=== PATIENT | male | born 1955 | race Caucasian/White ===

== ENCOUNTER → 2017-06-04 11:30 | Outpatient (CLI) | payer OTHER ==
[~2017-06-04] VITALS: Ht 182.9 cm; Wt 85.5 kg
--- NOTE | ~2017-06-04 | HEMODYNAMI ---
PATIENT:SANDY CHUN MEDICAL RECORD: [id number] : 55 LOCATION:[facility] ADMISSION DATE: 06/04/17 Generatedon:06/04/201715:03 Patient name: SANDY CHUN Patient #: [id number] SSN: D OB: 1955 Date of study: 06/04/2017 Page: Of Hemodynamic Procedure Report Patient Data Patient Demographics Procedure consent was obtained First Name: SANDY Gender: Male Last Name: ADIEL : 1955 Patient #: [id number] Age: 61 year(s) Race: Unknown Additional ID: [id number] Contact details [address]: [address] [place] [address] [place] State: [place] City: [place] Zip code: [address] Past Medical History Allergies: No known allergies Admission Admission Data Admission Date: 06/04/2017 Admission Time: 11:30 Lab Results Lab Result Date: 06/04/2017 Lab Result Time: 0:00 Biochemistry Name Units Result Min Max Creatinine mg/dl 1.1 --(--*-)-- 0.6 1.3 CBC Name Units Result Min Max Hemoglobin g/dl 14.2 --(*---)-- 13.5 17.5 Procedure Procedure Types Cath Procedure Diagnostic Procedure [facility] w/Coronaries PCI Procedure Coronary Stent Initial Coronary Stent Additional Miscellaneous Procedures Moderate Sedation up to 45 minutes Procedure Description Procedure Date Procedure Date: 06/04/2017 Procedure Start Time: 14:09 Procedure End Time: 15:03 Procedure Staff Name Function Sabas Lee MD Performing Physician Renate Basurto RT Scrub Rahel Dong RN Nurse Ish Bailey RN Mechanical Design Engineer Products Yifan Moreno RT Monitor Procedure Data Cath Procedure Fluoroscopy Diagnostic fluoroscopy Total fluoroscopy Time: time: 16.7 min 16.7 min Diagnostic fluoroscopy Total fluoroscopy dose: dose: 1545 mGy 1545 mGy Contrast Material Contrast Material Type Amount (ml) Isovue 300 211 Entry Location Entry Primary Successful Side Size Upsize Upsize Entry Closure Hung ccessful Closure Location (Fr) 1 (Fr) 2 (Fr) Remarks Device Remarks Radial Right 6 Fr Mechanical artery Short Compression Femoral Right 6 Fr Exoseal artery Short Estimated blood loss: 10 ml Diagnostic catheters Device Type Used For End Catheter Placement Diagnostic Terumo 5Fr LV Angiography Bone Gap 110cm catheter Diagnostic Terumo 5Fr Left Coronary Bone Gap 110cm catheter Angiography Procedure Complications No complications Procedure Medications Medication Administration Route Dosage Oxygen NC 2 l/min Lidocaine 2% added to field 20 Heparin Flush Bag added to field 2 bags (1000units/500ml NS) 0.9% NaCl I.V. 100 ml/hr Versed I.V. 1 mg Fentanyl I.V. 50 mcg Versed I.V. 1 mg Fentanyl I.V. 50 mcg Radial Cocktail I.A. 1 syringe (Verapomil 2mg/Nitro 400mcg/Heparin 1500units) Fentanyl I.V. 50 mcg Heparin Bolus I.V. 4000 units Integrilin (Bolus I.V. 7.9 ml 2mg/ml) Fentanyl I.V. 50 mcg Heparin Bolus I.V. 2000 units Plavix P.O. 600 mg Hemodynamics Rest HGB: 14.2 (g/dl) Heart Rate: 98 (bpm) Pressure Samples Time Site Value (mmHg) Purpose Heart Use Rate(bpm) 14:12 LV 136/3,9 EDP 89 Gradients Valve Time Site Site Mean SEP/DFP Peak To Heart Use 1 2 (mmHg) (sec/min) Peak Rate (mmHg) (bpm) Aortic 14:13 LV AO 94 Snapshots Pre Cath Intra NCS Post Cath Vital Signs Time Heart Resp SPO2 etCO2 [id number] NIBP (mmHg) Rhythm Pain Sedation Rate (ipm) (%) (mmHg) (mmHg) Status Level (bpm) 13:58:05 93 15 100 0 0 169/85(133) NSR 0 (11) 10(A) , No pain 14:02:17 87 16 96 0 0 138/92(105) NSR 0 (11) 10(A) , No pain 14:06:33 86 14 98 0 0 144/77(128) NSR 0 (11) 10(A) , No pain 14:10:49 95 16 98 0 0 131/74(103) NSR 0 (11) 9(A) , No pain 14:15:03 86 16 96 0 0 143/76(117) NSR 0 (11) 9(A) , No pain 14:19:21 85 21 94 0 0 159/75(103) NSR 0 (11) 9(A) , No pain 14:23:37 86 16 96 0 0 131/75(111) NSR 0 (11) 9(A) , No pain 14:27:49 95 19 98 0 0 137/82(116) NSR 0 (11) 9(A) , No pain 14:32:03 94 24 97 0 0 143/80(108) NSR 0 (11) 9(A) , No pain 14:36:19 92 19 97 0 0 137/78(115) NSR 0 (11) 9(A) , No pain 14:40:33 103 21 99 0 0 160/79(110) NSR 0 (11) 9(A) , No pain 14:44:49 101 19 96 0 0 149/87(108) NSR 0 (11) 9(A) , No pain 14:49:09 96 22 97 0 0 146/79(109) NSR 0 (11) 9(A) , No pain 14:53:25 97 17 97 0 0 153/85(111) NSR 0 (11) 9(A) , No pain 14:57:39 96 20 97 0 0 164/95(114) NSR 0 (11) 10(A) , No pain 15:01:55 92 21 96 0 0 158/92(123) NSR 0 (11) 10(A) , No pain Medications Time Medication Route Dose Verified Delivered Reason Note s Effectiveness by by 13:57:33 Oxygen NC 2 l/min Sabas Mcginnis used for [facility] Angel Dong RN procedure 13:57:41 Lidocaine 2% added 20ml Sabas Obregon for local to vial [facility] anesthetic field MD PERAZA 13:57:47 Heparin Flush added 2 bags Sabas Obregon used for Bag to [facility] procedure (1000units/500ml field MD PERAZA NS) 13:57:57 0.9% NaCl I.V. 100 Sabas Mcginnis Per physician ml/hr [facility] Angel Dong RN, MD 14:07:40 Versed I.V. 1 mg Sabas Mcginnis for sedation [facility]. Angel Dong RN, MD 14:07:46 Fentanyl I.V. 50 mcg Sabas Mcginnis for sedation [facility]. Angel Dong RN, MD 14:10:07 Radial Cocktail I.A. 1 Sabas Obregon for (Verapomil syringe [facility] Angel Lee vasodilation 2mg/Nitro MD PERAZA 400mcg/Heparin 1500units) 14:10:14 Versed I.V. 1 mg Sabas Mcginnis for sedation [facility]. Angel Dong RN, MD 14:10:19 Fentanyl I.V. 50 mcg Sabas Mcginnis for sedation [facility]. Angel Dong RN, MD 14:15:50 Fentanyl I.V. 50 mcg Sabas Mcginnis for sedation St. Angel Dong RN, MD 14:19:30 Heparin Bolus I.V. 4000 Sabas [place] for veri fied units St. Angel Dong RN anticoagulation with dr MD grijalva 14:21:18 Integrilin I.V. 7.9 ml Sabas Mcginnis for Wast ed (Bolus 2mg/ml) [facility]. Angel Dong RN antiplatelet 2.1 ml therapy of vial 14:39:32 Fentanyl I.V. 50 mcg Sabas Mcginnis for sedation St. Angel Dong RN, MD 14:42:23 Heparin Bolus I.V. 2000 Sabas Mcginnis for veri fied units St. Angel Dong RN anticoagulation with dr MD grijalva 15:01:03 Plavix P.O. 600 mg Sabas Mcginnis for St. Angel Dong RN antiplatelet therapy Procedure Log Time Note 13:37:27 Ish Bailey RN sent for patient. Start room use. 13:37:28 Time tracking: Regular hours 13:37:32 Plan of Care:Hemodynamics will remain stable., Cardiac rhythm will remain stable., Comfort level will be maintained., Respiratory function will remain adequate., Patient/ family verbilizes understanding of procedure., Procedure tolerated without complication., Recovers from procedure without complications.. 13:49:10 Patient received from Pre/Post Procedure Room to CCL 1 Alert and oriented. Tansferred to table in Supine position. 13:49:11 Warm blankets applied, and harvey hugger turned on for patient comfort. 13:49:12 Correct patient and procedure confirmed by team. 13:49:13 Signed procedure consent form obtained from patient. 13:49:14 ECG and BP/O2 sat monitors applied to patient. 13:49:16 Full Disclosure recording started 13:56:56 Vital chart was started 13:56:59 Rhythm: sinus rhythm 13:57:09 H&P Date Dictated: 05/30/2017 Within 30 days and on chart., H&P Addendum completed by physician on day of procedure. (MUST COMPLETE FOR ALL OUTPATIENTS). 13:57:10 Pre-procedure instructions explained to patient. 13:57:11 Pre-op teaching completed and patient verbalized understanding. 13:57:12 Family in waiting room. 13:57:19 Patient NPO since Midnight. 13:57:33 Oxygen 2 l/min NC was administered by Rahel Dong RN; used for procedure; 13:57:41 Lidocaine 2% 20ml vial added to field was administered by Sabas Lee MD; for local anesthetic; 13:57:47 Heparin Flush Bag (1000units/500ml NS) 2 bags added to field was administered by Sabas Lee MD; used for procedure; 13:57:57 0.9% NaCl 100 ml/hr I.V. was administered by Rahel Dong RN; Per physician; 13:57:59 Patient allergic to No known allergies 13:58:01 Is the patient allergic to Iodine/contrast media? No. 13:58:03 Is patient on blood thinner?No 13:58:08 ACC The patient was administered the following blood thiners within the last 24 hours: None 13:58:10 Patient diabetic? No. 13:58:13 Previous problem with sedation/anesthesia? No ? 13:58:14 Snore? Yes 13:58:15 Sleep apnea? No 13:58:16 Deviated septum? No 13:58:17 Opens mouth fully? Yes 13:58:18 Sticks out tongue? Yes 13:58:19 Airway obstruction? No ? 13:58:21 Dentures? No ? 13:58:27 Pre procedure: right dorsailis pedis pulse 2+ Normal; easily identifiable; not easily obliterated 13:58:30 Pre procedure: right radial pulse 2+ Normal; easily identifiable; not easily obliterated 13:58:32 Modified Jeffery's test Ulnar < 7 seconds 13:58:33 Patient pain scale 0/10 ?. 13:58:38 IV patent on arrival in left hand with 0.9% NaCl at [facility]. 13:59:37 Lab Result : Creatinine 1.1 mg/dl 13:59:37 Lab Result : Hemoglobin 14.2 g/dl 13:59:50 Baseline sample Acquired. 14:00:09 Lab results completed and on chart. 14:00:13 Right Radial & Right Groin area was prepped with chlora-prep and draped in sterile fashion 14:00:14 Alarms reviewed by R. N. 14:00:14 Sharps counted by scrub and verified by R.N. 14:00:18 Use device set Radial Dx 14:00:19 Acist Syringe opened to sterile field. 14:00:19 Medline Cath Pack opened to sterile field. 14:00:20 Bag Decanter opened to sterile field. 14:00:20 Terumo 6Fr Slender Glidesheath opened to sterile field. 14:00:21 St Ron 260cm J .035 wire opened to sterile field. 14:00:22 Acist Hand Control opened to sterile field. 14:00:22 Acist Manifold opened to sterile field. 14:00:23 Tegaderm 4 x 4 opened to sterile field. 14:00:23 MBrace Wrist Support opened to sterile field. 14:06:57 Final Timeout: patient, procedure, and site verified with staff and physician. All members of the team are in agreement. 14:06:59 Right groin site verified by team. 14:07:02 Physical assessment completed. ASA score P 2 - A patient with mild systemic disease as per Sabas Lee MD. 14:07:04 Sedation plan: IV Moderate Sedation Versed, Fentanyl 14:07:40 Versed 1 mg I.V. was administered by Rahel Dong RN; for sedation; 14:07:46 Fentanyl 50 mcg I.V. was administered by Rahel Dong RN; for sedation; 14:09:27 Zero performed for pressure channel P1 14:09:33 Zero performed for pressure channel P1 14:09:35 Zero performed for pressure channel P1 14:09:38 Zero performed for pressure channel P1 14:09:40 Zero performed for pressure channel P1 14:09:49 Procedure started. 14:09:54 Local anesthetic to right radial artery with Lidocaine 2% by Sabas Lee MD.INITIAL ACCESS ONLY 14:10:01 A 6 Fr Short sheath was inserted into the Right Radial artery 14:10:07 Radial Cocktail (Verapomil 2mg/Nitro 400mcg/Heparin 1500units) 1 syringe I.A. was administered by Sabas Lee MD; for vasodilation; 14:10:14 Versed 1 mg I.V. was administered by Rahel Dong RN; for sedation; 14:10:15 A Diagnostic Terumo 5Fr Bone Gap 110cm catheter was advanced over the wire and used for LV Angiography. 14:10:19 Fentanyl 50 mcg I.V. was administered by Rahel Dong RN; for sedation; 14:12:06 LV gram done using OLSEN 14:12:08 LV hemodynamics recorded. 14:12:11 Injector settings: Ml/sec: 5, Volume: 10, 14:12:52 EF : 55 % 14:13:55 A Diagnostic Terumo 5Fr Bone Gap 110cm catheter was advanced over the wire and used for Left Coronary Angiography. 14:15:43 Catheter removed. 14:15:50 Fentanyl 50 mcg I.V. was administered by Rahel Dong RN; for sedation; 14:17:28 Mata Florence 300cm 0.014 guide wire opened to sterile field. 14:17:29 [employer] BasixCompak Inflation Kit opened to sterile field. 14:19:15 6 Fr XBLAD 3.5 guide catheter was inserted over the wire 14:19:24 Cordis 6FR XBLAD 3.5 guide catheter opened to sterile field. 14:19:30 Heparin Bolus 4000 units I.V. was administered by Rahel Dong RN; for anticoagulation; verified with dr grijalva 14:21:18 Integrilin (Bolus 2mg/ml) 7.9 ml I.V. was administered by Rahel Dong RN; for antiplatelet therapy; Wasted 2.1 ml of vial 14:22:21 Guide Catheter removed. unable to cannulate vessel. 14:22:58 Medtronic Launcher 6Fr EBU 4.0 guide catheter opened to sterile field. 14:23:30 6 Fr EBU 4.0 guide catheter was inserted over the wire 14:24:44 Guide Catheter removed. unable to cannulate vessel. 14:24:56 Local anesthetic to right femoral artery with Lidocaine 2% by Sabas Lee MD.ADDITIONAL ACCESS 14:25:01 A 6 Fr Short sheath was inserted into the Right Femoral artery 14:25:02 Terumo 6Fr Clyde Sheath opened to sterile field. 14:27:55 6 Fr XBLAD 3.5 guide catheter was inserted over the wire 14:30:47 Florence wire advanced. 14:34:39 Inflation Number: 1 A Medtronic Integrity 3.0 X 15 stent was prepped and advanced across the 1st Diag. The stent was deployed at 14 GAY for 0:32 (min:sec). 14:36:30 Inflation number: 2 The stent balloon was then re-inflated across the 1st Diag to 8 GAY for 0:25 (min:sec). 14:37:18 Stent catheter was removed intact over wire. 14:39:32 Fentanyl 50 mcg I.V. was administered by Rahel Dong RN; for sedation; 14:40:48 Inflation Number: 3 A Medtronic Integrity 3.0 X 9 stent was prepped and advanced across the 1st Diag. The stent was deployed at 14 GAY for 0:19 (min:sec). 14:42:23 Heparin Bolus 2000 units I.V. was administered by Rahel Dong RN; for anticoagulation; verified with dr grijalva 14:48:40 Inflation number: 1 A Mozec Rx 2.5 x 14 balloon was prepped and advanced across the Mid LAD, then inflated to 12 GAY for 0:10 (min:sec). 14:49:01 Inflation number: 2 The Mozec Rx 2.5 x 14 balloon was reinflated across the Mid LAD, to 12 GAY for 0:10 (min:sec). 14:51:19 Balloon removed over the wire. 14:54:29 Inflation Number: 3 A Medtronic Integrity 3.0 X 22 stent was prepped and advanced across the Mid LAD. The stent was deployed at 14 GAY for 0:28 (min:sec). 14:54:54 Stent catheter was removed intact over wire. 14:54:55 Wire removed. 14:54:55 Guide catheter removed. 14:55:07 Sheath removed intact; hemostasis achieved with Mechanical Compression to the Right Radial artery. 14:55:24 Cordis 6Fr Exoseal opened to sterile field. 14:55:27 Procedure ended.(Physican Out) 14:56:53 Fluoroscopy time 16.70 minutes. 14:56:58 Fluoroscopy dose: 1545 mGy 14:56:58 Flurop Dose total: 1545 14:57:02 Contrast amount:Isovue 300 211ml. 14:57:05 Sharps counted by scrub and verified by R.N. 14:57:07 TR band inflated with 12cc of air. 14:57:08 Insertion/operative site no bleeding no hematoma. 14:58:33 Post right radial artery:stable, clean and dry 14:59:25 Sheath removed intact; hemostasis achieved with Exoseal to the Right Femoral artery. 14:59:35 Terumo TR Band Standard opened to sterile field. 14:59:43 Post-op/insertion site Right Femoral artery dressed using a 4 x 4 and Tegaderm. 14:59:47 Post right femoral artery:stable, clean and dry 14:59:50 Post Procedure Pulses reassessed and unchanged 14:59:54 Post-procedure physical assessment completed. ASA score P 2 - A patient with mild systemic disease as per Sabas Lee MD. 14:59:56 Post procedure rhythm: unchanged. 14:59:58 Estimated blood loss: 10 ml 15:00:00 Post procedure instruction explained to patient.Patient verbalizes understanding. 15:00:00 Patient needs reinforcement of post procedure teaching. 15:00:38 Procedure type changed to Cath procedure, Diagnostic procedure, LHC, LHC w/Coronaries, PCI procedure, Coronary Stent Initial, Coronary Stent Additional, Miscellaneous Procedures, Moderate Sedation up to 45 minutes 15:00:45 Procedure Complication : No complications 15:00:48 See physician's report for complete and final results. 15:01:03 Plavix 600 mg P.O. was administered by Rahel Dong RN; for antiplatelet therapy; 15:01:44 Procedure and supply charges have been captured, reviewed, submitted and are correct. 15:02:41 Vital chart was stopped 15:02:43 Report given to Pre/Post Procedure Room. 15:02:47 Patient transfered to Pre/Post Procedure Room with Stretcher. 15:03:05 Procedure ended. 15:03:05 Full Disclosure recording stopped 15:03:09 End room use (Document Last) Intervention Summary Intervention Notes Time ActionType Lesion and Equipment Action# Pressure Duration Attributes Used 14:34:39 Place stent 1st Diag Medtronic 1 14 00:32 Integrity 3.0 X 15 stent 14:36:30 Reinflate 1st Diag Medtronic 2 8 00:26 stent Integrity balloon 3.0 X 15 stent 14:40:48 Place stent 1st Diag Medtronic 3 14 00:19 Integrity 3.0 X 9 stent 14:48:40 Inflate Mid LAD Mozec Rx 1 12 00:10 balloon 2.5 x 14 balloon 14:49:01 Reinflate Mid LAD Mozec Rx 2 12 00:10 balloon 2.5 x 14 balloon 14:54:29 Place stent Mid LAD Medtronic 3 14 00:28 Integrity 3.0 X 22 stent Device Usage Item Name Manufacture Quantity Catalog Hospital Part Current Minimal Lot# / Number Charge Number Stock Stock Serial# Code Acist Acist 1 [id number] [id number] 482670 060291 20 Syringe Medical Systems Inc Medline Cardinal 1 [id number] 071698 02075 368131 5 Cath Pack Health Bag Microtek 1 2002S 813441 74744 030155 5 get2play Inc. Terumo 6Fr Terumo 1 [id number] 464212 635151 527034 [address] Ron St Ron 1 189639 377145 084131 204528 30 260cm J .035 wire Acist Hand Acist 1 19930 131498 059655 751091 5 Control Medical Systems Inc Acist Acist 1 03553 960904 474460 146279 5 Manifold Medical Systems Inc Tegaderm 4 3M 1 1626W 586361 073077 237713 5 x 4 MBrace Advanced 1 140-0250-00 258360 43412 634251 5 Wrist Vascular Support Dynamics Diagnostic Terumo 1 82-4837 609480 373152 522155 5 Terumo 5Fr Bone Gap 110cm catheter [facility] 1 [id number] 297399 504152 510462 1 Florence Vascular 300cm 0.014 guide wire Merit Merit 1 [id number] 020193 335401 387829 15 RedMicascSecond Light Medical Inflation Kit Cordis 6FR Cardinal 1 [id number] 973829 622461 888517 10 XBLAD 3.5 Health guide catheter Medtronic Medtronic 1 [id number] 266137 17329 730702 1 Launcher 6Fr EBU 4.0 guide catheter Terumo 6Fr Terumo 1 [id number] 335254 010507 526987 40 Clyde Sheath Medtronic Medtronic 1 [id number] 305390 921391 6 [id number] Integrity 3.0 X 15 stent Medtronic Medtronic 1 [id number] 126406 223610 1 [id number] Integrity 3.0 X 9 stent Mozec Rx Cardinal 1 [id number] 215508 13012 617494 5 UMOA36 2.5 x 14 Health balloon Medtronic Medtronic 1 [id number] 469808 818079 3 [id number] Integrity 3.0 X 22 stent Cordis 6Fr Cardinal 1 [id number] 807752 542760 263314 10 [facility] [facility] 1 [id number] 461796 131808 377705 40 Band Standard Signature Audit Lamoni Stage Time Signature Unsigned Intra-Procedure 06/04/2017 Renate 3:03:19 PM Counts RT(R) Signatures Monitor : Yifan Moreno RT Signature : Date : Time : [place] [address] [place] [address]
--- NOTE | ~2017-06-04 | OP ---
PATIENT NAME: SANDY CHUN MEDICAL RECORD: [id number] :55 LOCATION:D.CAT ADMISSION DATE: SURGEON: STACEY DAVIS MD OPERATION DATE: 06/04/17 PROCEDURES: 1. Left heart catheterization. 2. Selective coronary angiography. PROCEDURE IN DETAIL: After informed consent was obtained and after detailed explanation of risks, benefits, as well as alternative therapies, the patient elected to proceed with angiogram. The right femoral area was prepped and draped in a normal sterile fashion. The right femoral artery was cannulated via modified Seldinger technique with placement of 5-Dutch sheath, 5-4 left to right Leonel, 5-4 pigtail catheter. All catheters exchanged through this sheath. The procedure was tolerated, the patient was returned to the baron after sheath was removed and ExoSeal device placed. FINDINGS: Left ventriculography was performed in standard 30 degree OLSEN view, reveals normal wall motion, normal systolic function. CORONARY ANATOMY: 1. LEFT MAIN: The left main is free of disease. 2. LEFT ANTERIOR DESCENDING: The left anterior descending has a large diagonal, easily 3.0 vessel with a diffuse 90% stenosis. The left anterior descending itself after the takeoff the diagonal, has about 80% stenosis. 3. CIRCUMFLEX: Small circumflex is free of disease. 4. RIGHT CORONARY ARTERY: The right coronary artery is a large dominant artery, free of disease. IMPRESSION: Plan intervention to left anterior descending diagonal momentarily. 5-Dutch sheath was exchanged for a 6-Dutch sheath. XB LAD guided catheter provided good guide catheter support followed by 300 centimeter curved Rochelle XT wire was essentially placed across the diagonal. Stents deployed were a 3.0 X 15 millimeter and 3.0 X 9 millimeter Integrity non drug-eluting stent up to 14 atmospheres. This showed excellent resolution of a diffuse 90% stenosis, and the diagonal showed no significant residual. Next , attention was turned to the left anterior descending. Predeployment balloon used was a 2.5 X 15 millimeter Mosaic balloon up to 10 atmospheres. Next, the stent deployed was a 3.0 X 22 millimeter Integrity ial-papm-ihljsnz stent up to 14 atmospheres. Final angiography shows excellent resolution of a diffuse 90% stenosis in the diagonal and no more discrete 80% stenosis in the left anterior descending. No significant residual. DAREN grade 3 flow throughout the procedure. Sheath was closed with ExoSeal device. Plavix was loaded in the lab. Heparin and Integrilin were used during the case. OPERATIVE REPORT [id number] SANDY CHUN,STACEY Ponce MD CC: [id number] DICTATION DATE: 06/04/17 1400 CRAS: KAYLEE 06/06/17 0847 DEP CLI 06/04/17 [place] [id number] [place] [id number]
[~2017-06-04 11:30] MED LIST: BAYER CHEWABLE81 MG PO; LEXAPRO10 MG PO; PLAVIX75 MG PO; PROTONIX40 MG PO
[2017-06-04 12:27] VITALS: BP 172/76; Ht 182.9 cm; Wt 85.5 kg
[2017-06-04 13:06] LABS: ANION GAP 15.1 mmol/L (8-16); CALCIUM 9.2 mg/dL (8.5-10.1); CARBON DIOXIDE 25.8 mmol/L (21.0-32.0); CREATININE - SERUM 1.1 mg/dL (0.6-1.3); POTASSIUM - SERUM 3.9 mmol/L (3.5-5.1)
[2017-06-04 13:17] LABS: BASOPHILS 0.2 % (0-2); EOSINOPHILS 3.1 % (0-7); HEMATOCRIT 41.5 % (42.0-54.0); HEMOGLOBIN 14.2 g/dL (13.5-17.5); IMMATURE GRANULOCYTES 0.3 % (0-5); LYMPHOCYTES 36.7 % (15-50); MCH 31.1 pg (26.0-34.0); MCHC 34.2 g/dL (31.0-37.0); MEAN PLATELET VOLUME 10.5 fL (7.4-10.4); MONOCYTES 7.6 % (2-11); NEUTROPHILS 52.1 % (40-80); PLATELET COUNT 236 10x3/uL (130-400); RBC 4.56 10x6/uL (4.20-6.10); RDW 12.7 % (11.5-14.5); WBC 6.2 10x3/uL (4.8-10.8)
--- NOTE | 2017-06-04 15:15 | NUR ---
TR BAND TO RIGHT WRIST-CDI AND RIGHT GROIN CDI- NO HEMATOMA OR BLEEDING AT SITE
--- NOTE | 2017-06-04 15:45 | NUR ---
NO CHANGE IN EITHER SITES, CONTINUES TO REST WITHOUT DISTRESS
--- NOTE | 2017-06-04 19:00 | NUR ---
TR BAND OFF WITH BANDAID IN PLACE, RIGHT GROIN CDI- NO HEMATOMA, IV D'C WITH CATH TIP INTACT, WRITTEN AND VERBAL INSTRUCTIONS GIVEN TO PT AND - QUESTIONS ANSWERED. D'C HOME WITH FAMILY
== END | disposition home or self-care (01) ==
LOC: D.CATH 11:30
PROVIDERS: Internal Medicine Interventional Cardiology
DX: I25.119 Atherosclerotic heart disease of native coronary artery with unspecified angina pectoris (principal); Z01.812 Encounter for preprocedural laboratory examination

== ENCOUNTER → 2017-08-13 11:05 | Outpatient (CLI) | payer OTHER ==
[~2017-08-13] VITALS: Ht 182.9 cm; Wt 85.0 kg
--- NOTE | ~2017-08-13 | HEMODYNAMI ---
PATIENT:SANDY CHUN MEDICAL RECORD: [id number] : 55 LOCATION:[facility] ADMISSION DATE: 08/13/17 Generatedon:08/13/201713:17 Patient name: SANDY CHUN Patient #: [id number] SSN: D OB: 1955 Date of study: 08/13/2017 Page: Of Hemodynamic Procedure Report Patient Data Patient Demographics Procedure consent was obtained First Name: SANDY Gender: Male Last Name: ADIEL : 1955 Middle Initial: L Age: 61 year(s) Patient #: [id number] Race: Unknown Additional ID: [id number] Contact details [address]: [address] [place] [address] circle State: [place] City: [place] Zip code: [address] Past Medical History Allergies: No known allergies Admission Admission Data Admission Date: 08/13/2017 Admission Time: 11:05 Lab Results Lab Result Date: 08/13/2017 Lab Result Time: 11:30 Biochemistry Name Units Result Min Max BUN mg/dl 21 --(----)-* 7 18 Creatinine mg/dl 1 --(--*-)-- 0.6 1.3 CBC Name Units Result Min Max Hematocrit % 43.7 --(*---)-- 42 54 Hemoglobin g/dl 15 --(-*--)-- 13.5 17.5 Procedure Procedure Types Cath Procedure Diagnostic Procedure C [facility] w/Coronaries Miscellaneous Procedures Moderate Sedation up to 15 minutes Procedure Description Procedure Date Procedure Date: 08/13/2017 Procedure Start Time: 13:05 Procedure End Time: 13:16 Procedure Staff Name Function Sabas Lee MD Performing Physician Emeka Tucker RT Scrub Jessica Linares RT Scrub Vikash Chavez RN Nurse Ish Bailey RN Sample Distributor Yifan Moreno RT Monitor Procedure Data Cath Procedure Fluoroscopy Diagnostic fluoroscopy Total fluoroscopy Time: 1.3 time: 1.3 min min Diagnostic fluoroscopy Total fluoroscopy dose: 469 dose: 469 mGy mGy Contrast Material Contrast Material Type Amount (ml) Isovue 300 50 Entry Location Entry Primary Successful Side Size Upsize Upsize Entry Closure Hung ccessful Closure Location (Fr) 1 (Fr) 2 (Fr) Remarks Device Remarks Radial Right 6 Fr Mechanical artery Short Compression Estimated blood loss: 5 ml Diagnostic catheters Device Type Used For End Catheter Placement Diagnostic Terumo 5Fr Procedure [place] 110cm catheter Procedure Complications No complications Procedure Medications Medication Administration Route Dosage 0.9% NaCl I.V. 100 ml/hr Oxygen NC 2 l/min Heparin Flush Bag added to field 2 bags (1000units/500ml NS) Lidocaine 2% added to field 20 Radial Cocktail added to field 1 syringe (Verapomil 2mg/Nitro 400mcg/Heparin 1500units) Versed I.V. 1 mg Fentanyl I.V. 50 mcg Versed I.V. 1 mg Fentanyl I.V. 50 mcg Hemodynamics Rest HGB: 15 (g/dl) Heart Rate: 87 (bpm) Pressure Samples Time Site Value (mmHg) Purpose Heart Use Rate(bpm) 13:08 LV 132/3,6 EDP 118 13:08 AO 114/71(90) Pullback 106 13:08 LV 131/7,10 Pullback 106 Gradients Valve Time Site 1 Site 2 Mean SEP/DFP Peak To Heart Use (mmHg) (sec/min) Peak Rate (mmHg) (bpm) Aortic 13:08 LV AO 13 20 17 106 131/7,10 114/71(90) Calculations Valve P-P Mean Valve Index Valve Source Name Gradient Area Flow (cm2) Aortic 17 13 17 13 Snapshots Pre Cath Intra NCS Post Cath Vital Signs Time Heart Resp SPO2 etCO2 [id number] NIBP (mmHg) Rhythm Pain Sedation Rate (ipm) (%) (mmHg) (mmHg) Status Level (bpm) 12:49:42 77 14 100 0 0 173/86(135) NSR 0 (11) 10(A) , No pain 12:54:25 88 17 100 0 0 152/81(131) NSR 0 (11) 10(A) , No pain 12:59:08 87 16 100 0 0 147/72(126) NSR 0 (11) 10(A) , No pain 13:03:52 78 13 99 0 0 129/81(104) NSR 0 (11) 9(A) , No pain 13:08:33 98 15 98 0 0 109/72(93) NSR 0 (11) 9(A) , No pain 13:13:05 93 16 98 0 0 127/86(107) NSR 0 (11) 10(A) , No pain Medications Time Medication Route Dose Verified Delivered Reason Notes Ef fectiveness by by 12:47:21 0.9% NaCl I.V. 100 Vikash Vikash Per ml/hr Lorigan Lorigan physician RN RN 12:47:36 Oxygen NC 2 l/min Vikash Vikash Per Lorigan Lorigan physician RN RN 12:47:52 Heparin Flush added 2 bags Vikash Vikash used for Bag to Lorigan Lorigan procedure (1000units/500ml field RN RN NS) 12:48:11 Lidocaine 2% added 20ml Vikash Vikash for local to vial Lorigan Lorigan anesthetic field RN RN 12:48:38 Radial Cocktail added 1 Vikash Vikash used for (Verapomil to syringe Lorigan Lorigan procedure 2mg/Nitro field RN RN 400mcg/Heparin 1500units) 13:00:07 Versed I.V. 1 mg Vikash Vikash for Lorigan Lorigan sedation RN RN 13:00:20 Fentanyl I.V. 50 mcg Vikash Vikash for Lorigan Lorigan sedation RN RN 13:08:21 Versed I.V. 1 mg Vikash Vikash for Lorigan Lorigan sedation RN RN 13:08:33 Fentanyl I.V. 50 mcg Vikash Vikash for Lorigan Lorigan sedation RN commercial marketing specialist Log Time Note 12:30:37 Ish Bailey RN sent for patient. Start room use. 12:35:04 Informed consent obtained and on chart 12:36:11 Lab Result : Creatinine 1 mg/dl 12:36:11 Lab Result : Hemoglobin 15 g/dl 12:36:11 Lab Result : BUN 21 mg/dl 12:36:11 Lab Result : Hematocrit 43.7 % 12:36:35 Diagnostic Cath status Elective 12:36:38 Time tracking: Regular hours 12:36:44 Plan of Care:Hemodynamics will remain stable., Cardiac rhythm will remain stable., Comfort level will be maintained., Respiratory function will remain adequate., Patient/ family verbilizes understanding of procedure., Procedure tolerated without complication., Recovers from procedure without complications.. 12:36:55 H&P Date Dictated: 08/05/2017 Within 30 days and on chart., H&P Addendum completed by physician on day of procedure. (MUST COMPLETE FOR ALL OUTPATIENTS). 12:36:59 Lab results completed and on chart. 12:43:07 Patient received from Pre/Post Procedure Room to CCL 1 Alert and oriented. Tansferred to table in Supine position. 12:43:09 Warm blankets applied, and harvey hugger turned on for patient comfort. 12:43:09 Correct patient and procedure confirmed by team. 12:43:10 ECG and BP/O2 sat monitors applied to patient. 12:43:12 Pre-procedure instructions explained to patient. 12:43:12 Pre-op teaching completed and patient verbalized understanding. 12:43:13 Family in waiting room. 12:47:21 0.9% NaCl 100 ml/hr I.V. was administered by Vikash Chavez RN; Per physician; 12:47:36 Oxygen 2 l/min NC was administered by Vikash Chavez RN; Per physician; 12:47:52 Heparin Flush Bag (1000units/500ml NS) 2 bags added to field was administered by Vikash Chavez RN; used for procedure; 12:48:11 Lidocaine 2% 20ml vial added to field was administered by Vikash Chavez RN; for local anesthetic; 12:48:38 Radial Cocktail (Verapomil 2mg/Nitro 400mcg/Heparin 1500units) 1 syringe added to field was administered by Vikash Chavez RN; used for procedure; 12:48:43 Vital chart was started 12:52:52 Baseline sample Acquired. 12:52:56 Rhythm: sinus rhythm 12:52:58 Full Disclosure recording started 12:53:04 Patient allergic to No known allergies 12:53:07 Is the patient allergic to Iodine/contrast media? No. 12:53:08 Is patient on blood thinner?No 12:53:09 Patient diabetic? No. 12:53:12 Previous problem with sedation/anesthesia? No ? 12:53:13 Snore? Yes 12:53:14 Sleep apnea? No 12:53:15 Deviated septum? No 12:53:15 Opens mouth fully? Yes 12:53:16 Sticks out tongue? Yes 12:53:18 Airway obstruction? No ? 12:53:19 Dentures? No ? 12:53:21 Modified Jeffery's test Ulnar < 7 seconds 12:53:25 Patient pain scale 0/10 ?. 12:53:29 IV patent on arrival in left forearm with 0.9% NaCl at [facility]. 12:53:33 Right Radial & Right Groin area was prepped with chlora-prep and draped in sterile fashion 12:53:35 Alarms reviewed by R. N. 12:53:35 Sharps counted by scrub and verified by R.N. 12:54:05 Use device set Radial Dx 12:54:06 MBrace Wrist Support opened to sterile field. 12:54:06 Tegaderm 4 x 4 opened to sterile field. 12:54:08 Acist Syringe opened to sterile field. 12:54:08 Medline Cath Pack opened to sterile field. 12:54:09 Bag Decanter opened to sterile field. 12:54:10 Acist Manifold opened to sterile field. 12:54:10 Acist Hand Control opened to sterile field. 12:54:11 St Ron 260cm J .035 wire opened to sterile field. 12:54:11 Terumo 6Fr Slender Glidesheath opened to sterile field. 12:57:47 Zero performed for pressure channel P1 12:59:34 Physician arrived 12:59:34 --------ALL STOP TIME OUT------ 12:59:35 Final Timeout: patient, procedure, and site verified with staff and physician. All members of the team are in agreement. 12:59:37 Right Radial & Right Groin site verified by team. 12:59:40 Physical assessment completed. ASA score P 2 - A patient with mild systemic disease as per Sabas Lee MD. 12:59:44 Sedation plan: IV Moderate Sedation Versed, Fentanyl 13:00:07 Versed 1 mg I.V. was administered by Vikash Chavez RN; for sedation; 13:00:20 Fentanyl 50 mcg I.V. was administered by Vikash Chavez RN; for sedation; 13:05:23 Procedure started. 13:05:27 Local anesthetic to right radial artery with Lidocaine 2% by Sabas Lee MD.INITIAL ACCESS ONLY 13:05:59 A 6 Fr Short sheath was inserted into the Right Radial artery 13:06:33 A Diagnostic Terumo 5Fr [place] 110cm catheter was advanced over the wire and used for Procedure. 13:08:13 LV gram done using OLSEN 13:08:15 Injector settings: Ml/sec: 5, Volume: 15, 13:08:21 Versed 1 mg I.V. was administered by Vikash Chavez RN; for sedation; 13:08:25 EF : 55 % 13:08:33 Fentanyl 50 mcg I.V. was administered by Vikash Chavez RN; for sedation; 13:08:51 LCA angiography performed. 13:11:41 RCA angiography performed. 13:13:02 Catheter removed. 13:13:08 Terumo TR Band Standard opened to sterile field. 13:13:18 Sheath removed intact; hemostasis achieved with Mechanical Compression to the Right Radial artery. 13:14:24 Procedure ended.(Physican Out) 13:14:46 Fluoroscopy time 01.30 minutes. 13:14:50 Fluoroscopy dose: 469 mGy 13:14:50 Flurop Dose total: 469 13:14:53 Contrast amount:Isovue 300 50ml. 13:14:54 Sharps counted by scrub and verified by R.N. 13:14:56 TR band inflated with 13cc of air. 13:14:57 Insertion/operative site no bleeding no hematoma. 13:15:09 Post right radial artery:stable, soft, clean and dry 13:15:11 Post Procedure Pulses reassessed and unchanged 13:15:56 Post-procedure physical assessment completed. ASA score P 2 - A patient with mild systemic disease as per Sabas Lee MD. 13:15:59 Post procedure rhythm: unchanged. 13:16:01 Estimated blood loss: 5 ml 13:16:02 Post procedure instruction explained to patient.Patient verbalizes understanding. 13:16:03 Patient needs reinforcement of post procedure teaching. 13:16:31 Procedure type changed to Cath procedure, Diagnostic procedure, LHC, LHC w/Coronaries, Miscellaneous Procedures, Moderate Sedation up to 15 minutes 13:16:33 Procedure and supply charges have been captured, reviewed, submitted and are correct. 13:16:36 Procedure Complication : No complications 13:16:37 Vital chart was stopped 13:16:38 See physician's report for complete and final results. 13:16:39 Report given to Pre/Post Procedure Room. 13:16:42 Patient transfered to Pre/Post Procedure Room with Stretcher. 13:16:44 Procedure ended. 13:16:44 Full Disclosure recording stopped 13:16:50 End room use (Document Last) Device Usage Item Name Manufacture Quantity Catalog Hospital Part Current Minimal Lot# / Number Charge Number Stock Stock Serial# Code Eileen Degroot 140-0250-00 [id number] 67591 [id number] 5 Wrist Vascular Support Dynamics Tegaderm 4 3M 1 1626W 350159 085720 082485 5 x 4 Acist Acist 1 25953 313549 495304 477473 20 Syringe Medical Systems Inc Medline Cardinal 1 [id number] 815919 50202 194649 5 Cath Pack Health Bag Microtek 1 2002S 600026 53535 863688 5 Decanter Medical Inc. Acist Acist 1 72700 848390 378083 754803 5 Manifold Medical Systems Inc Acist Hand Acist 1 32067 751642 905089 155773 [address] Ron St Ron 1 900571 439812 199478 716929 30 260cm J .035 wire Terumo 6Fr Terumo 1 [id number] 565039 642088 827076 40 Slender Glidesheath Diagnostic Terumo 1 40-1216 549987 943275 300731 5 Terumo 5Fr [place] 110cm catheter Terumo TR Terumo 1 [id number] 177034 620749 171224 40 Band Standard Signature Audit [place] Stage Time Signature Unsigned Intra-Procedure 08/13/2017 Yifan Moreno 1:17:38 PM RT(R) Signatures Monitor : Yifan Moreno RT Signature : Date : Time : [facility] [address] [address]
--- NOTE | ~2017-08-13 | OP ---
PATIENT NAME: SANDY CHUN MEDICAL RECORD: [id number] :55 LOCATION:D.CAT ADMISSION DATE: SURGEON: STACEY DAVIS MD DATE OF OPERATION: 08/13/2017 PROCEDURES: 1. Left heart catheterization. 2. Right radial approach. CATHETERS: [place] catheter and radial sheath. The procedure was well tolerated. The patient returned to the baron and sheath was removed. TR band was placed. FINDINGS: Left ventriculography in 30-degree OLSEN view: Normal wall motion. Normal systolic function. CORONARY ANATOMY. LEFT MAIN: Left main is free of disease. LAD: It has diffuse in-stent restenosis throughout the area of previous stenting. This is in less than 2 months' time frame. It has a large diagonal branch. Again, this was stented with good result previously and now has severe diffuse in-stent restenosis. CIRCUMFLEX: Free of disease. RIGHT CORONARY ARTERY: Large vessel, free of disease. IMPRESSION: Aggressive restenosis. Given the nature of this restenosis, it could be issue in residential or percutaneously. I think coronary bypass grafting may be best option. Dr. Lester is consulted for that purpose. TRANSINT:[id number] Voice Confirmation ID: [id number] DOCUMENT ID: [id number] STACEY DAVIS MD CC: [id number] DICTATION DATE: 08/13/17 1321 STUDIO MANAGER: 08/13/17 1444 [facility] [address] [id number]
[~2017-08-13 11:05] MED LIST changes: +PRAVASTATIN SOD10 MG PO
[2017-08-13 11:23] VITALS: BP 142/76; Ht 182.9 cm; Wt 85.0 kg
[2017-08-13 11:47] LABS: BASOPHILS 0.5 % (0-2); EOSINOPHILS 2.8 % (0-7); HEMATOCRIT 43.7 % (42.0-54.0); IMMATURE GRANULOCYTES 0.5 % (0-5); LYMPHOCYTES 36.1 % (15-50); MCH 30.9 pg (26.0-34.0); MCHC 34.3 g/dL (31.0-37.0); MCV 89.9 fL (80.0-100.0); MEAN PLATELET VOLUME 10.1 fL (7.4-10.4); NEUTROPHILS 52.1 % (40-80); PLATELET COUNT 229 10x3/uL (130-400); RBC 4.86 10x6/uL (4.20-6.10); RDW 12.7 % (11.5-14.5); WBC 6.1 10x3/uL (4.8-10.8)
[2017-08-13 11:57] LABS: CALC OSMOLALITY 283 mosm/kg (275-300); CALCIUM 9.1 mg/dL (8.5-10.1); CARBON DIOXIDE 28.5 mmol/L (21.0-32.0); CHLORIDE - SERUM 105 mmol/L (98-107); GLUCOSE 91 mg/dL (74-106); SODIUM 141 mmol/L (136-145); UREA NITROGEN 21 mg/dL (7-18); eGFR NON AFRICAN AMERICAN 81 mL/min (90-120)
--- NOTE | 2017-08-13 13:25 | NUR ---
1325 RECIEVED TO ROOM VIA STRETCHER FROM DATA SUPPORT SPECIALIST WITH TR BAND TO R/WRIST CDI NO BLEEDING NO HEAMTOMA NOTED. REPORTS OF MULTIPLE DISEASE WITH DR UGARTE CONSULT. NO INTERVENTION AT THIS TIME. VSS WITH CHEST PAIN DENIED 1343 DR DAVIS PRESENT AT BEDSIDE TALKING TO PATIENT AND FAMILY
--- NOTE | 2017-08-13 13:50 | NUR ---
HR 67 CHEST PAIN DENIED BP 138/78. TR BAND TO R/WRIST CDI NO BLEEDING NO HEMATOMA NOTED. INSTRUCTED PATIENT TO KEEP HEAD FLAT ON PILLOW WITH RUE STRAIGHT NO BENDING OR FLEXING OF WRIST
--- NOTE | 2017-08-13 14:28 | NUR ---
SANDWICH AND SODA TO BEDSIDE WITH NAUSEA DENIED. VSS PATIENT REPOSITIONED TO SITTING WITH HOB UP 30 DEGREES FOR COMFORT. TR BAND REMAINS TO R/WRIST CDI NO BLEEDING NO HEMATOMA NOTED.
--- NOTE | 2017-08-13 14:39 | NUR ---
VSS WITH NEEDS DENIED. 2 CC AIR REMOVED FROM TR BAND WITH NO BLEEDING NO HEMATOMA NOTED.
--- NOTE | 2017-08-13 14:45 | NUR ---
1445 2 CC AIR REMOVED FROM TR BAND WITH NO BLEEDING NO HEMATOMA NOTED. FAMILY AT SIDE 1500 2 CC AIR REMOVED FROM TR BAND WITH NO BLEEDING NO HEMATOMA NOTED. 1515 2 CC AIR REMOVED FROM TR BAND WITH NO BLEEDING NOTED
--- NOTE | 2017-08-13 15:15 | NUR ---
1515 4 CC AIR REMOVED FROM TR BAND WITH NO BLEEDING NOTED. PIV REMOVED WITH DRESSING APPLIED. PATIENT DENIED PAIN OR NEEDS. VERBAL AND WRITTEN DISCHARGE GONE OVER WITH PATIENT AND
--- NOTE | 2017-08-13 15:38 | NUR ---
TR BAND REMOVED WITH DRESSING APPLIED. NO BLEEDING NO HEMATOMA NOTED. VERBAL INSTRUCTIONS GONE OVER AGAIN WITH FAMILY CHEST PAIN IS DENIED LEFT VIA WC TO PARKING FOR TRANSPORT HOME
== END | disposition home or self-care (01) ==
LOC: D.CATH 11:05
PROVIDERS: Internal Medicine Interventional Cardiology
DX: I25.119 Atherosclerotic heart disease of native coronary artery with unspecified angina pectoris (principal); R06.02 Shortness of breath; Z01.812 Encounter for preprocedural laboratory examination

== ENCOUNTER 2017-08-15 15:00 | Inpatient (IN) | payer OTHER ==
[2017-08-15] VITALS (10 sets, daily range): BP systolic 98–167; BP diastolic 62–92; BMI 25.4
[~2017-08-15 15:00] MED LIST changes: -PRAVASTATIN SOD10 MG PO
--- NOTE | 2017-08-15 15:30 | NUR ---
REC'D VIA WHEELCHAIR, AAO, CLOTHES TAKEN OF AND GIVEN TO , NO PERSONAL BELONGINGS AT BEDSIDE, HOSPITAL PLACED ON, CONNECTED TO MONITOR, RHYTHM SHOWING 1 DEGREE BLOCK, FEELS SOME PRESSURE, ORHER VSS, LEFT HAND PIV 20G STARTED, ASSESSMENT COMPLETE PER FLOWSHEET, LAB HERE FOR BLOO DRAW, COMPLETED, DOPPLER STUDY COMPLETED, PATIENT RESTING WITH NO SIGNS OF DISTRESS,
--- NOTE | 2017-08-15 15:45 | NUR ---
NITRO PASTE, APPLIED TO LEFT UPPER CHEST
[2017-08-15 16:10] LABS: HEMATOCRIT 45.1 % (42.0-54.0); HEMOGLOBIN 15.5 g/dL (13.5-17.5); MCHC 34.4 g/dL (31.0-37.0); MCV 90.2 fL (80.0-100.0); MEAN PLATELET VOLUME 10.2 fL (7.4-10.4); RDW 12.6 % (11.5-14.5); WBC 6.9 10x3/uL (4.8-10.8)
[2017-08-15 16:20] LABS: APTT 30.2 SECONDS (22.8-39.4); INR 0.89 (0.85-1.17); PROTIME 11.9 SECONDS (11.6-15.0)
[2017-08-15] MEDS ORDERED: PRAVASTATIN SOD10 MG PO (16:30)
[2017-08-15 16:43] LABS: HEMOGLOBIN A1C 5.4 % (4.8-6.0)
[2017-08-15 16:46] LABS: ANION GAP 13.5 mmol/L (8-16); CALCIUM 9.7 mg/dL (8.5-10.1); CARBON DIOXIDE 27.7 mmol/L (21.0-32.0); CREATININE - SERUM 1.2 mg/dL (0.6-1.3); POTASSIUM - SERUM 4.2 mmol/L (3.5-5.1)
--- NOTE | 2017-08-15 17:10 | NUR ---
PTT 30.2, 1000U HEPARIN GIVEN AND HEPARIN GTT STARTED AT 1000U/HR,
[2017-08-15 17:13] LABS: ALBUMIN 4.1 g/dL (3.4-5.0); ANION GAP 15.2 mmol/L (8-16); BILIRUBIN - TOTAL 0.42 mg/dL (0.2-1.3); CALCIUM 9.7 mg/dL (8.5-10.1); CREATININE - SERUM 1.1 mg/dL (0.6-1.3); PHOSPHOROUS 3.5 mg/dL (2.5-4.9); POTASSIUM - SERUM 4.2 mmol/L (3.5-5.1); T4 THYROXIN - FREE 1.16 ng/dL (0.76-1.46); THYROID STIMULATING HORMONE 2.72 uIU/mL (0.36-3.74); URIC ACID 6.6 mg/dL (2.6-7.2)
--- NOTE | 2017-08-15 17:15 | NUR ---
LOPRESSOR 12.5 MG, AND PROTONIX 40 MG PO GIVEN PER MAR ORDER
--- NOTE | 2017-08-15 18:15 | NUR ---
AND FRIEND AT BEDSIDE, STATUS UPDATED, VOICES NO NEEDS AT THIS TIME
--- NOTE | 2017-08-15 18:50 | NUR ---
OOB TO BATHROOM, URINE SPECIMEN COLLECTED, BACK TO BED WITH ASSIST, RECONNECTED TO MONITOR, VSS, NO DYSPNEA NOTED, SPECIMEN TUBE TO LAB
--- NOTE | 2017-08-15 19:30 | NUR ---
REPORT RECVD. CARE ASSUMED. INITIAL ASSMNT COMPLETED. SEE FLOWSHEET FOR ALL FINDINGS. AWAKE AND AOX4. RESP UNLABORED. LUNGS CTA. SPO2 98% ON RA. SR ON THE MONITOR. PULSES PALP. DENIES CHEST DISCOMFORT. VOIDING NO DIFF. ABD SOFT. BSA X4. BR WITH BRP IN PLACE. HOB UP. C/L IN REACH. CONT CURRENT POC.
[2017-08-15 20:06] LABS: APPEARANCE CLEAR (CLEAR); BILIRUBIN NEGATIVE (NEGATIVE); COLOR YELLOW (YELLOW); GLUCOSE NEGATIVE (NEGATIVE); KETONE NEGATIVE (NEGATIVE); NITRITE NEGATIVE (NEGATIVE); PROTEIN NEGATIVE (NEGATIVE); UROBILINOGEN NORMAL (NORMAL)
[2017-08-15 21:10] LABS: COLD SCREEN @ 4 DEGREES NEGATIVE (NEGATIVE); COLD SCREEN ROOM TEMP NEGATIVE (NEGATIVE)
--- NOTE | 2017-08-15 21:15 | NUR ---
HS MEDS GIVEN. NO VISITORS. NO NEEDS VOICED. SR ON THE MONITOR. C/L IN REACH. CONT CURRENT POC.
--- NOTE | 2017-08-15 23:35 | NUR ---
REASSESSMENT PER FLOWSHEET SEE FOR ALL FINDINGS. C/O INTENSE HEADACHE AND GENERALIZED DISCOMFORT. PRN JOHNCO PROVIDED PER DR DAVIS.
[2017-08-16] VITALS (24 sets, daily range): BP systolic 98–167; BP diastolic 58–89
--- NOTE | 2017-08-16 01:05 | NUR ---
RESTING WITH EYES CLOSED. VSS. SR ON THE MONITOR. DENIES CP. HOB UP. C/L IN REACH. CONT CURRENT POC.
--- NOTE | 2017-08-16 03:30 | NUR ---
REASSESSMENT COMPLETED. SEE FLOWSHEET FOR ALL FINDINGS. NO DISTRESS. RESTING. RESP UNLABORED. SPO2 95% ON RA. LUNGS CTA. SB-SR ON THE MONITOR. PULSES PALP. TEDS/SCDS ON. AFEBRILE. HOB UP. C/L IN REACH. CONT CURRENT POC.
--- NOTE | 2017-08-16 05:15 | NUR ---
RESTING SIDE LYING WITH NO DISTRESS. VSS. DENIES CHEST DISCOMFORT. HEPARIN GTT INFUSING PER ORDERS. SR ON THE MONITOR. HOB UP. C/L IN REACH. CONT CURRENT POC.
--- NOTE | 2017-08-16 06:15 | NUR ---
AT BEDSIDE. UPDATE GIVEN.
--- NOTE | 2017-08-16 14:32 | NUR ---
0730-RECIEVED PER FLOW SHEET- L HAND HEPARIN GTT INFUSING AT 1100 AND ADJUSTED TO 1200UNITS PER SCALE-NOTED SR ON MONITOR-DENIES CHEST PAIN -STATES HEADACHE SEVERE -NORCO TAB GIVEN ORDERED AND ENCOURAGED PT TO REQUEST PAIN PILL NEEDED-INFORMED PT WITH NTG OINT HEADACHE WILL NOT RESOLVE WITH OUT PAIN PILL 0830-PT SITTING UP IN BED-APPEARS TO BE TAKING BREAKFEST TRAY- 1130-LAB DRAWN ORDERED 1215-PT APPEARS TO BE ASLEEP-LUNCH TRAY LEFT ON BEDSDIE TABLE 1220-PTT 77-HEPARIN GTT LEFT AT 1200UNITS 1415-PT AWAKE -C/O OF SEVERE HEADACHE-NORCO TAB GIVEN-ROOM DARKENED-ASSISTED TO BATHROOM-COOL CLOTH GIVEN-
--- NOTE | 2017-08-16 17:29 | NUR ---
1730-C/O SEVERE HEADACHE-STATES INTENSITY DECREASED FROM PREVIOUS CHECK-NORCO 5MG 1 TAB PO GIVEN- AT BEDSDIE AND PT ASSISTED TO BATHROOM RETURNED TO BED -SCDS REPLACED
--- NOTE | 2017-08-16 19:30 | NUR ---
REPORT RECVD. CARE ASSUMED. INITIAL ASSMNT COMPLETED. SEE FLOWSHEET FOR ALL FINDINGS. AWAKE AND AOX4. RESP EVEN AND UNLABORED ON RA. SPO2 96%. SB-SR ON THE MONITOR. NITRO PASTE IN USE. DENIES CP. HEPARIN GTT INFUSING TO LEFT PIV. DENIES DISCOMFORT AT THIS TIME. ON BEDREST WITH BRP. TEDS/SCDS IN USE. HOB UP. C/L IN REACH. CONT CURRENT POC.
--- NOTE | 2017-08-16 21:15 | NUR ---
HS MEDS GIVEN WITH PRN NORCO. EFFECTIVE WITH PAIN CONTROL. PRN AMBIEN GIVEN TO PROMOTE SLEEP. CONT CURRENT POC.
[2017-08-17] VITALS (24 sets, daily range): BP systolic 93–166; BP diastolic 55–94
--- NOTE | 2017-08-17 01:05 | NUR ---
RESTING WITH NO DISTRESS. VSS. NO NEEDS VOICED. CONT POC.
--- NOTE | 2017-08-17 05:00 | NUR ---
RESTING WITH NO DISTRESS. NO SIF CHANGES. C/L IN REACH. SINUS GREG. CONT POC.
--- NOTE | 2017-08-17 06:49 | NUR ---
UP TO BR WITH MINIMAL ASSIST. AT BEDSIDE. UPDATE GIVEN.
--- NOTE | 2017-08-17 10:24 | NUR ---
1015-C/O OF RETURNING HEADACHE-01/31-NORCO 5 GIVEN-AMBULATED TO RESTROOM-DENIES CHEST DISCOMFORT-OR ARM TINGLING AT THIS TIME-SR ON MONITOR -L HAND IV PATENT HEPARIN GTT AT 1200UNIT/H
--- NOTE | 2017-08-17 13:37 | NUR ---
PT'S REQUESTING PAIN MEDICATION FOR PT. INFORMED THAT PAIN MED NOT ABLE TO BE GIVEN AT THIS TIME. WILL GIVE AT NEXT AVAILABLE TIME.
--- NOTE | 2017-08-17 19:30 | NUR ---
REPORT RECIEVED. ASSESSMENT COMPLETED. SEE FLOW SHEET FOR FURTHER DETAILS. PT CLIPPED AND SHAVED PER PREOP ORDER. WILL GIVE CHLORHEX BATH IN THE AM. WILL CONTINUE TO MONITOR PT.
--- NOTE | 2017-08-17 19:46 | NUR ---
1730-COMPLETE HEBILCLENS AND SHAVE PREP DONE WITH ASSIST-TOLERATED WELL BY PT 1815-PTT DRAWN
--- NOTE | 2017-08-17 21:00 | NUR ---
AT BED SIDE. PT AMD NERVOUS ABOUT SURGERY REASSURANCE GIVEN. WILL CONTINUE TO MONITOR PT.
--- NOTE | 2017-08-17 23:00 | NUR ---
REASSESSMENT COMPLETED AT THIS TIME. NO ACUTE CHANGES AT THIS TIME. WILL CONTINUE TO MONITOR PT
[2017-08-18] VITALS (49 sets, daily range): BP systolic 96–152; BP diastolic 49–76; BMI 25.3
--- NOTE | 2017-08-18 01:00 | NUR ---
PT RESTING WITH EYES CLOSED. DENIES ANY NEEDS. VSS. CALL LIGHT IN REACH.
--- NOTE | 2017-08-18 03:00 | NUR ---
REASSESSMENT COMPLETED. NO ACUTE CHANGES AT THIS TIME. HEPARIN GTT TURNED OFF PER ORDER. HELPED PT TO RESTROOM AND BACK IN BED. POSITIONED FOR COMFORT WILL CONTINUE TO MONITOR PT.
--- NOTE | 2017-08-18 05:41 | NUR ---
PT PRE OP MEDS ARE GIVEN. PER ORDER OF . LUCILA DID NOT SCAN VERIFIED WITH HOANG GILLIS RN WILL NOTIFY PHARM IN THE AM. PRE OP CHLORHEXIDINE BATH GIVEN. AWAITING ON SURGERY TO COME GET PT.
--- NOTE | 2017-08-18 06:25 | NUR ---
PT TAKEN TO OR PER .
[2017-08-18 09:50] LABS: PLT FUNCT.(P2Y12) PLAVIX 262 PRU (194-418)
[2017-08-18 12:59] LABS: HEMATOCRIT 31.7 % (42.0-54.0); HEMOGLOBIN 11.1 g/dL (13.5-17.5); MCH 31.2 pg (26.0-34.0); MEAN PLATELET VOLUME 9.9 fL (7.4-10.4); RBC 3.56 10x6/uL (4.20-6.10); RDW 12.4 % (11.5-14.5); WBC 15.5 10x3/uL (4.8-10.8)
[2017-08-18 13:13] LABS: CALC OSMOLALITY 288 mosm/kg (275-300); CALCIUM 7.3 mg/dL (8.5-10.1); CARBON DIOXIDE 27.2 mmol/L (21.0-32.0); CHLORIDE - SERUM 108 mmol/L (98-107); CREATININE - SERUM 0.7 mg/dL (0.6-1.3); POTASSIUM - SERUM 3.8 mmol/L (3.5-5.1); SODIUM 142 mmol/L (136-145); UREA NITROGEN 14 mg/dL (7-18); eGFR NON AFRICAN AMERICAN > 90 mL/min (90-120)
[2017-08-18 13:16] LABS: GLUCOSE 196 mg/dL (74-106)
--- NOTE | 2017-08-18 13:25 | NUR ---
RECIEVED PT TO ROOM FROM OR. ATTACHED TO ICU MONITORS. FULL ASSESSMENT COMPLETE PER FLOWSHEET. 1:1 CARE PROVIDED.
[2017-08-18 13:41] LABS: INR 1.36 (0.85-1.17); PROTIME 16.7 SECONDS (11.6-15.0)
--- NOTE | 2017-08-18 13:50 | NUR ---
FLUID CHALLENGE GIVEN PER ORDERS.
--- NOTE | 2017-08-18 14:02 | NUR ---
POTASSIUM TREATED PER ORDERS.
--- NOTE | 2017-08-18 14:30 | NUR ---
AT BEDSIDE. UPDATE PROVIDED ON PLAN OF CARE. PHONE NUMBER AND PASSWORD SAVED IN COMPUTER. PHONE NUMBER FOR NURSES STATION PROVIDED. STATED SHE WOULD GO HOME AND GET SOME REST. STATED TO THAT WE WOULD CALL HER IF THERE WERE ANY CHANGES.
--- NOTE | 2017-08-18 15:00 | NUR ---
STARTING TO WAKE UP MORE. CALM AND COOPERATIVE ON VENT. VSS AT THIS TIME. WILL CONT TO ASSESS.
--- NOTE | 2017-08-18 16:01 | NUR ---
VSS. NO CHANGES NOTED AT THIS TIME.
--- NOTE | 2017-08-18 16:05 | NUR ---
DR. UGARTE CHANGED THE TPM SETTINGS FROM DDD 100 TO VVI 50.
--- NOTE | 2017-08-18 16:10 | NUR ---
DR. UGARTE AT BEDSIDE. UPDATE PROVIDED ON GTT'S. BLOOD GAS BEING OBTAINED AT THIS TIME. PT IS HAVING FREQUENT PVC'S. WILL TREAT ACCORDING TO GAS.
--- NOTE | 2017-08-18 16:21 | NUR ---
POTASSIUM REPLACENT INFUSING PER ORDERS.
--- NOTE | 2017-08-18 18:15 | NUR ---
СЕРГЕЙ OBTAINED. DR. UGARTE UPDATED.
--- NOTE | 2017-08-18 19:00 | NUR ---
REPORT RECIEVED. ASSESSMENT COMPLETED. SEE FLOW SHEET FOR FURTHER DETAILS. PT TPM SENSING WITH WIRES SECURED TO CHEST. CHEST TUBES TO 20 CM WITH NO LEAKES NOTED. IN THE PROCESS OF WEANING OFF VENT. PT ON CPAP NOW. WILL CONTINUE 1 ON 1 NURSING CARE.
--- NOTE | 2017-08-18 19:45 | NUR ---
PT EXTUBATED AND ON 4L NC WITH ADEQUATE SATS. PT ABLE TO SWALLOW AND HANDLE ICE CHIPS GOOD. WILL CONTINUE 1 ON 1 NURSING CARE.
--- NOTE | 2017-08-18 21:05 | NUR ---
PT CALLED UPDATE GIVEN. PT RESTING COMFORTABLY. PT EDUCATED ON I.S. WITH A BEST EFFORT OF 1250. WILL CONTINUE 1 ON NURSING CARE.
--- NOTE | 2017-08-18 23:00 | NUR ---
REASSESSMENT COMPLETED. NO ACUTE CHANGES AT THIS TIME. PT RESTIN WITH NO SIGNS OF DISTRESS. WILL CONTINUE 1 ON 1 NURSING CARE.
[2017-08-19] VITALS (86 sets, daily range): BP systolic 90–135; BP diastolic 49–81
--- NOTE | 2017-08-19 01:00 | NUR ---
PT RESTING COMFORTABLE. VSS. WILL CONTINUE 1 ON 1 NURSING CARE
--- NOTE | 2017-08-19 03:12 | NUR ---
REASSESSMENT COMPLETED. NO ACUTE CHANGES AT THIS TIME. PT RESTING WITH NO SIGNS OF DISTRESS. WILL CONTINUE 1 ON 1 NURSING CARE.
[2017-08-19 04:13] LABS: HEPATITIS C ANTIBODY <0.1 (0.0-0.9)
--- NOTE | 2017-08-19 05:00 | NUR ---
RT LEG DRESSING CHANGED PER ORDER. APPLIED TEDS AND SCD. CLEAN LINENS PROVIDED. PT POSITIONED FOR COMFORT. WILL CONTINUE 1 ON 1 NURSING CARE.
[2017-08-19 06:05] LABS: BASOPHILS 0.1 % (0-2); EOSINOPHILS 0.1 % (0-7); HEMATOCRIT 24.6 % (42.0-54.0); HEMOGLOBIN 8.6 g/dL (13.5-17.5); IMMATURE GRANULOCYTES 0.3 % (0-5); LYMPHOCYTES 8.4 % (15-50); MCH 31.4 pg (26.0-34.0); MCV 89.8 fL (80.0-100.0); MONOCYTES 10.9 % (2-11); NEUTROPHILS 80.2 % (40-80); PLATELET COUNT 157 10x3/uL (130-400); RBC 2.74 10x6/uL (4.20-6.10); RDW 13.1 % (11.5-14.5); WBC 15.8 10x3/uL (4.8-10.8)
[2017-08-19 06:27] LABS: ALBUMIN 3.7 g/dL (3.4-5.0); ALKALINE PHOSPHATASE 43 U/L (46-116); ALT (SGPT) 26 U/L (10-68); BILIRUBIN - TOTAL 0.99 mg/dL (0.2-1.3); CALC OSMOLALITY 282 mosm/kg (275-300); CALCIUM 7.8 mg/dL (8.5-10.1); CARBON DIOXIDE 26.9 mmol/L (21.0-32.0); CHLORIDE - SERUM 107 mmol/L (98-107); GLUCOSE 123 mg/dL (74-106); POTASSIUM - SERUM 4.1 mmol/L (3.5-5.1); PROTEIN - SERUM 5.9 g/dL (6.4-8.2); SODIUM 141 mmol/L (136-145); UREA NITROGEN 15 mg/dL (7-18); eGFR NON AFRICAN AMERICAN 81 mL/min (90-120)
--- NOTE | 2017-08-19 07:15 | NUR ---
REPROT RECIEVED FROM MOTOR COACH OPERATOR NURSE. PT RESTING IN BED QUIETLY. NO S/SX OF ACUTE DISTRESS NOTED AT THIS TIME. VSS. SHIFT ASSESSMEMT COMPLETE PER FLOWSHEET. CALL LIGHT IN REACH ALONG WITH MORPHINE SUPERVISING CHEF BUTTON. PLAN OF CARE CONTINUED. 1:1 NURSING CARE PROVIDED.
--- NOTE | 2017-08-19 07:50 | NUR ---
ORAL CARE DONE WITH PERIDEX
--- NOTE | 2017-08-19 08:00 | NUR ---
DR. UGARTE AT BEDSIDE. STATED TO START WEANING GTT'S TOLERATED.
--- NOTE | 2017-08-19 08:22 | NUR ---
ABG OBTAINED. ELECTROLYTE REPLCEMENT PROVIDED PER ORDERS.
--- NOTE | 2017-08-19 09:30 | NUR ---
AT BEDSIDE. UPDATE PROVIDED.
--- NOTE | 2017-08-19 10:18 | NUR ---
NUTRITION F/U CHART REVIEWED. PT EXTUBATED, CURRENTLY NPO. WILL PROVIDE DIET WHEN RESUMED, MONITOR PO INTAKE. RD FOLLOWING
--- NOTE | 2017-08-19 10:55 | NUR ---
ABG'S OBTAINED. POTASSIUM REPLACED PER ORDERS.
--- NOTE | 2017-08-19 11:52 | NUR ---
RECIEVED ORDER FOR FLUID CHALLENGE. ADMINISTERED ORDERED.
--- NOTE | 2017-08-19 13:00 | NUR ---
ABLE TO WEAN DOPAMINE OFF. BP HAS REMAINED WITHIN PARAMETERS. WILL CONT TO ASSESS.
--- NOTE | 2017-08-19 15:00 | NUR ---
AT BEDSIDE FOR VISITATION. UPDATE PROVIDED.
--- NOTE | 2017-08-19 17:01 | NUR ---
DR. DOW AT BEDSIDE. UPDATE PROVIDED.
--- NOTE | 2017-08-19 17:38 | NUR ---
* Is the patient Alert and Oriented? Yes 0 * How many steps to enter\exit or inside your home? 0 0 * PCP Dr. Patiño 0 * Pharmacy [facility] [address] 0 * Preadmission Environment Home with Family 0 * ADLs Independent 0 * List name and contact numbers for known caregivers / representatives who currently or will assist patient after discharge: Spouse - Tiarra [phone] 0 * Additional services required to return to the preadmission environment? No 0 * Can the patient safely return to the preadmission environment? Yes 0 * Has this patient been hospitalized within the prior 30 days at any hospital? No Patient Name: SANDY CHUN Admission Status: Urgent Accout number: [id number] Admission Date: 08-15-2017 : 1955 Admission Diagnosis:ACUTE ISCHEMIC HEART DISEASE, UNSPECIFIED Attending: JOHN UGARTE Current LOS: 4 Anticipated DC Date: 08-25-2017 Planned Disposition: Home Primary Insurance: [facility] PPO Discharge Planning Comments: CM met with patient to assess dc plans/needs. Patient states he lives at home with his , Tiarra. He reports he is independent with all ADL's & IADL's. He does not use any assistive devices for mobility & has not had home health services. At dc, he will return home with his . No needs identified or verbalized at this time. CM will follow & assist as needed. Brinell Tester: Digna Vogel
--- NOTE | 2017-08-19 18:51 | NUR ---
ORAL CARE WITH PERIDEX AFTER RESPIRATORY TREATMENT
--- NOTE | 2017-08-19 19:30 | NUR ---
REPORT RECIEVED. ASSESSMENT COMPLETED. SEE FLOW SHEET FOR FURTHER DETAILS. CHEST TUBES X3 NOTED TO 20CM WITH NO LEAKS NOTED. SWAN IS EST TO 51 CM AND SECURED. TPM WIRES ARE SECURED TO CHEST. VSS. PT POSITIONED FOR COMFORT WILL CONTINUE 1 ON 1 NURSING CARE.
--- NOTE | 2017-08-19 21:00 | NUR ---
NO VISITORS AT THIS TIME. PT HAS A GOOD EFFORT USING I.S. WITH A BEST OF 1000. PT HAS A GOOD PRODUCTIVE COUGH. WILL CONTINUE 1 ON 1 NURSING CARE.
--- NOTE | 2017-08-19 23:00 | NUR ---
REASSESSMENT COMPLETED. NO ACUTE CHANGES AT THIS TIME. PT RESTIN IN BED WITH TV ON. VSS. WILL CONTINUE 1 ON 1 NURSING CARE.
[2017-08-20] VITALS (39 sets, daily range): BP systolic 102–141; BP diastolic 51–77
--- NOTE | 2017-08-20 01:00 | NUR ---
PT RESTIN IN COMFORT. SHOWS NO SIGNS OF DISTRESS WILL CONTINUE 1 ON 1 NURSING CARE.
--- NOTE | 2017-08-20 03:00 | NUR ---
REASSESSMENT COMPLETE. SEE FLOW SHEET FOR FURTHER DETAILS. WILL CONTINUE 1 ON 1 NURSING CARE.
--- NOTE | 2017-08-20 05:00 | NUR ---
RT LEG DRESSING CHANGED PER ORDER. PT POSITIONED FOR COMFORT. WILL CONTINUE 1 ON 1 NURSING CARE.
[2017-08-20 06:06] LABS: MCH 30.5 pg (26.0-34.0); MCHC 33.2 g/dL (31.0-37.0); RDW 13.5 % (11.5-14.5); WBC 12.2 10x3/uL (4.8-10.8)
[2017-08-20 06:21] LABS: HEMATOCRIT 19.6 % (42.0-54.0); HEMOGLOBIN 6.5 g/dL (13.5-17.5); RBC 2.13 10x6/uL (4.20-6.10)
[2017-08-20 06:36] LABS: ALBUMIN 3.8 g/dL (3.4-5.0); ALKALINE PHOSPHATASE 43 U/L (46-116); ALT (SGPT) 30 U/L (10-68); CALC OSMOLALITY 277 mosm/kg (275-300); CALCIUM 8.3 mg/dL (8.5-10.1); CHLORIDE - SERUM 101 mmol/L (98-107); GLUCOSE 136 mg/dL (74-106); POTASSIUM - SERUM 4.5 mmol/L (3.5-5.1); PROTEIN - SERUM 6.1 g/dL (6.4-8.2); SODIUM 137 mmol/L (136-145); eGFR NON AFRICAN AMERICAN 81 mL/min (90-120)
[2017-08-20 06:38] LABS: HEMATOCRIT 20.3 % (42.0-54.0)
[2017-08-20 06:41] LABS: UREA NITROGEN 19 mg/dL (7-18)
[2017-08-20 06:59] LABS: HEMOGLOBIN 6.7 g/dL (13.5-17.5)
--- NOTE | 2017-08-20 07:02 | NUR ---
ORAL CARE WITH PERIDEX PROVIDED TO PATIENT
--- NOTE | 2017-08-20 07:04 | NUR ---
NOTIFIED ABOUT AM LABS. PER ORDER TO GIVE 2 UNITS OF BLOOD.
--- NOTE | 2017-08-20 07:20 | NUR ---
FIRST UNIT PRBC STARTED
--- NOTE | 2017-08-20 07:45 | NUR ---
SECOND UNIT PRBC STARTED
--- NOTE | 2017-08-20 08:10 | NUR ---
CAME IN UNIT BEHIND PHYSICIAN. LET HER KNOW THAT IT WASN'T VISITING HOUR AND ASKED HER TO PLEASE WAIT OUT IN FAMILY WAITING UNTIL THE 9AM VISITATION. WAS ABLE TO SAY GOOD MORNING TO PATIENT AND VISIT FOR A MOMENT BEFORE GOING OUT.
--- NOTE | 2017-08-20 09:19 | NUR ---
CHEST TUBES HAVE BEEN PULLED BY DR UGARTE. RIGHT IJ SWAN REMOVED. MINIMAL BLEEDING. RIGHT RADIAL ART LINE REMOVED, MINIMAL BLEEDING. ALL IV FLUIDS DISCONTINUED ORDERED. LEFT SUBCLAVIAN LINE SALINE LOCKED. VILLELA CATHETER REMOVED, TIP INTACT.
--- NOTE | 2017-08-20 10:15 | NUR ---
RESPIRATORY THERAPIST IN ROOM FOR BREATHING TREATMENT AND I.S.
--- NOTE | 2017-08-20 11:17 | NUR ---
PT UP IN CHAIR AT BEDSIDE WITH ASSIST FROM PHYSICAL THERAPY.
--- NOTE | 2017-08-20 12:09 | NUR ---
PT SITTING UP IN CHAIR AT BEDSIDE. VSS. NO VISITORS AT THIS TIME.
--- NOTE | 2017-08-20 12:15 | NUR ---
NOW AT BEDSIDE FOR VISITATION
--- NOTE | 2017-08-20 12:45 | NUR ---
AND PATIENT ASKING ABOUT PATIENT GETTING AN AMBIEN AT BEDTIME TONIGHT. LET THEM KNOW DR UGARTE DOESN'T LIKE TO HAVE HIS PATIENTS TAKING AMBIEN AFTER PROCEDURES USUALLY. THEY INDICATED THAT PATIENT WAS ON IT PRIOR TO SURGERY. LOOKED UP EMAR AND NO AMBIEN ORDERS. THERE WAS AN OLD ORDER THAT WAS DISCONTINUED PRIOR TO SURGERY.
--- NOTE | 2017-08-20 16:02 | NUR ---
DR DOW BY TO SEE PATIENT.
--- NOTE | 2017-08-20 16:13 | NUR ---
PT UP IN CHAIR AT BEDSIDE. HAS WALKED THIS AFTERNOON WITH PHYSICAL THERAPY. 250 FEET.
--- NOTE | 2017-08-20 17:07 | NUR ---
PT SITTING UP IN CHAIR EATING SALAD. NO DISTRESS. TOLERATING FOOD WELL. HAS DECLINED ANY FOOD TODAY UP UNTIL THIS POINT. WILL MONITOR. VSS.
--- NOTE | 2017-08-20 17:44 | NUR ---
PT C/O NAUSEA. TO GIVE ZOFRAN AND REGLAN
--- NOTE | 2017-08-20 19:00 | NUR ---
PT AOX4, DENIES PAIN AT THIS TIME. LUNG SOUNDS CLEAR/DIMINISHED, SPO2 95 ON 3L O2 VIA NC. PULLING 1000 ON IS, GOOD EFFORT. S1S2 HEARD, PERIPHERAL PULSES PRESENT. TPM WIRES SECURED. BOWEL SOUNDS ACTIVE IN ALL QUADRANTS. WEAKNESS TO LOWER EXTREMITIES PRESENT. REPOSITIONS WITH MINIMAL ASSISTANCE. REPOSITIONED FOR COMFORT WITH EXTREMITIES BRIDGED. DENIES FURTHER NEEDS AT THIS TIME. RESTING COMFORTABLY AT THIS TIME. CALL LIGHT AND BEDSIDE TABLE WITHIN PT REACH. CPOC.
--- NOTE | 2017-08-20 21:00 | NUR ---
HS MEDS GIVEN W/O DIFFICULTY. FRESH WATER TO BEDSIDE. PT REPOSITIONED FOR COMOFRT. DENIES PAIN AT THIS TIME. VSS, DENIES NEEDS. CALL LIGHT AND BEDSIDE TABLE WITHIN PT REACH. CPOC.
--- NOTE | 2017-08-20 23:00 | NUR ---
REASSESSMENT COMPLETE, SEE FLOWSHEET FOR ALL FINDINGS. COUGH/DB/IS ENCOURAGED. VSS, NO COMPLAINTS AT THIS TIME. RESTING COMFORTABLY. CALL LIGHT AND BEDSIDE TABLE WITHIN PT REACH. CPOC.
[2017-08-21] VITALS (26 sets, daily range): BP systolic 105–137; BP diastolic 56–84
--- NOTE | 2017-08-21 | NUR ---
REPORT RECEIVED AND CARE ASSUMED
--- NOTE | 2017-08-21 01:00 | NUR ---
PT SLEEPING AT THIS TIME RESP REG AND NONLABORED
--- NOTE | 2017-08-21 03:00 | NUR ---
SHIFT REASSESSMENT COMPLETED SEE FLOWSHEET. PT HAS BEEN SLEEPING WELL TONIGHT. DOING A FAIR JOB ON IS. ENCOURAGED AND PT TEACHING RECONFIRMED ON IMPORTANCE OF COMPLIANCE AND PT VERBALIZED COMPREHESION
--- NOTE | 2017-08-21 04:00 | NUR ---
PT LEAVING UNIT VIA W/C WITH MANAGER DATA CENTER FOR CXR
--- NOTE | 2017-08-21 04:11 | NUR ---
PT RETURNED TO ROOM FROM CXR AND ASSISTED BACK TO BED PER HIS REQUEST
--- NOTE | 2017-08-21 06:00 | NUR ---
PT DID OPEN UP AND SHARE HIS FEELINGS OF DEPRESSION, TEARFUL WITH BLUNTED AFFECT. HE STATES HE SOMETIMES JUST FEELS LIKE GIVING UP BUT HE WORRIES ABOUT HIS . STATES HIS LEXAPRO HAS NOT BEEN HELPING HIM FOR QUITE SOME TIME BUT HE HASN'T TOLD ANYONE ABOUT IT. ENCOURAGED PT TO DISCUSS THIS WITH HIS PHYSICIAN AND REPORTED THIS TO ONCOMING RN FOR FOLLOWUP. PT STATES HE DID SEE A THERAPIST WHILE IN [facility] BUT HASNT ESTATBLISHED WITH A THERAPIST LOCALLY AT THIS TIME.
[2017-08-21 06:24] LABS: HEMATOCRIT 26.2 % (42.0-54.0); HEMOGLOBIN 8.8 g/dL (13.5-17.5); MCH 30.4 pg (26.0-34.0); MCHC 33.6 g/dL (31.0-37.0); MCV 90.7 fL (80.0-100.0); MEAN PLATELET VOLUME 10.1 fL (7.4-10.4); RBC 2.89 10x6/uL (4.20-6.10); RDW 14.2 % (11.5-14.5); WBC 10.8 10x3/uL (4.8-10.8)
[2017-08-21 06:46] LABS: ALBUMIN 3.3 g/dL (3.4-5.0); ALKALINE PHOSPHATASE 77 U/L (46-116); CALC OSMOLALITY 275 mosm/kg (275-300); CALCIUM 8.3 mg/dL (8.5-10.1); CARBON DIOXIDE 28.6 mmol/L (21.0-32.0); CHLORIDE - SERUM 99 mmol/L (98-107); CREATININE - SERUM 0.9 mg/dL (0.6-1.3); GLUCOSE 108 mg/dL (74-106); POTASSIUM - SERUM 4.2 mmol/L (3.5-5.1); PROTEIN - SERUM 6.1 g/dL (6.4-8.2); SODIUM 136 mmol/L (136-145); UREA NITROGEN 21 mg/dL (7-18); eGFR NON AFRICAN AMERICAN > 90 mL/min (90-120)
[2017-08-21 06:47] LABS: ALT (SGPT) 41 U/L (10-68)
--- NOTE | 2017-08-21 07:50 | NUR ---
REPORT RECEIVED. ASSUMED CARE OF PATIENT. PT AWAKE AND CONVERSANT. DENIES PAIN AT THIS TIME. SAYS IT HAS LESSENED TIME HAS GONE BY. HURTS LESS AND LESS WITH I.S. ACTIVITY. HAS NOT YET HAD A BOWEL MOVEMENT. CAN HEAR BOWEL SOUNDS/GAS IN ALL QUADRANTS. PT SAYS HAS NOT BEEN PASSING GAS. DENIES NAUSEA WHEN ASKED. SAYS JUST WANTS TO SLEEP. EVERY TIME NODS OFF, SOMEONE COMES IN TO WAKE HIM UP. JUST WANTS SOME UNDISTURBED TIME TO SLEEP AND THEN WILL GET UP TO CHAIR. REFUSES BREAKFAST TRAY.
--- NOTE | 2017-08-21 09:21 | NUR ---
DR DOW HAS BEEN ON UNIT. DISCUSSED WITH HIM PT REMARKS AND BEHAVIOR ABOUT CURRENT DEPRESSION TREATMENT. HE WENT IN TO PATIENT ROOM TO CHECK UP ON HIM AND ALSO ASKED ABOUT PT LEXAPRO. DR DOW SAID THE PATIENT DID NOT WANT TO CHANGE ANYTHING AT THIS MOMENT. WILL ADDRESS IN OFFICE WHEN SEES PCP POST DISCHARGE
--- NOTE | 2017-08-21 09:35 | NUR ---
AT BEDSIDE AT THIS TIME.
--- NOTE | 2017-08-21 10:06 | NUR ---
PT SLEEPING AT THIS TIME. STILL AT BEDSIDE.
--- NOTE | 2017-08-21 10:53 | NUR ---
NUTRITION F/U PT ON REG DIET. POOR PO INTAKE AND CONSTIPATION PER NURSING REPORT. RECIEVING REGLAN AND COLACE. WILL CONTINUE TO PROVIDE DIET, HONOR FOOD PREFERENCES. HOPEFULLY APPETITE AND PO INTAKE WILL IMPROVE AFTER CONSTIPATION RESOLVES. RD FOLLOWING
--- NOTE | 2017-08-21 13:13 | NUR ---
PT UP WALKING WITH PHYSICAL THERAPY. NO DISTRESS NOTED. BACK TO CHAIR AT BEDSIDE.
--- NOTE | 2017-08-21 13:42 | NUR ---
PT O2 TURNED DOWN TO 2L.
--- NOTE | 2017-08-21 15:17 | NUR ---
VISITOR AT BEDSIDE. PT NOW AWAKE, HAS BEEN SLEEPING.
--- NOTE | 2017-08-21 16:33 | NUR ---
PT UP IN CHAIR. EATING A CRACKER. DENIES NAUSEA. REFUSED OFFERED DINNER TRAY. ASKS FOR JELLO INSTEAD. STILL C/O "FULLNESS" IN BELLY. DENIES HAVING PASSED GAS. NO BOWEL MOVEMENT POST PROCEDURE.
--- NOTE | 2017-08-21 18:20 | NUR ---
COMPLETE BATH GIVEN. FULL LINEN CHANGE. PT PROVIDED OWN ORAL CARE. PT WAS TOLD BY PRIMARY NURSE THAT IF HE DOESN'T START PASSING GAS OR HAVE A BOWEL MOVMENT WE WOULD LOOK AT GETTING A SUPPOSITORY TO HELP WITH MOVEMENT. AFTER BATH WAS GIVEN AND PT WAS UP TO DO ORAL CARE HE FELT NEED TO GO TO TOILET. AFTER PASSING URINE PASSED LARGE AMOUNTS OF GAS. SAID WAS ALSO ABLE TO MOVE BOWELS. SAYS HE FEELS RELIEF IN HIS BELLY NOW. PT NOW IN BED. AT BEDSIDE AND BROUGHT HIM A 7UP AND A STRAWBERRY MILKSHAKE.
--- NOTE | 2017-08-21 20:00 | NUR ---
2000: Pt rec'd resting HOB 30 degrees with eyes open. Pupils AYANNA+ bialt. 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 Pt moves x4 extrem vs. gravity without difficulty. Pt denies pain, tingling, numbness, nausea, or vomitting at this time. Pt breathing 021LNC with RR16x with SPO2 97%. RT was in room and IS was completed with RT. Pt reports occasional productive cough with white/clear sputum. S1S2 regular ST 100's on CM with SBP 120's. Left DLSC intact and saline locked at this time. Midline sternal incision CDI with no s/s of bleeding, oozing, or swelling noted. Distal portion of dressing with TPM wires taped intact. TPM VVI 50/0/10 V-Sense. Right lower extrem with multiple leg dressings intact. ABD soft NT BS active x4. Pt denies difficulty with elimination at this time. SR up x2, call light in reach, and all monitors and alarms intact.
--- NOTE | 2017-08-21 22:30 | NUR ---
2230: Pt c/o incisional pain. Pt rates 5/10 and request pain Rx. Rx admin as per EMAR. Pt remains SR/St 90-100 bpm with SBP 120-130. No change in TPM settings. Pt remains on 021LNC with SPO2 94%. Enouraged DBC.
--- NOTE | 2017-08-21 23:00 | NUR ---
2300: Pt assited up to bathroom with minimal assistance. Pt gait steady and balanced. Pt urinated in commode and performed independent oral care at this time. Pt returned to bed and all monitors reestablished. Pt remains ST100 with SBP 120. No change in TPM settings. Incisions unchanged from assessment.
[2017-08-22] VITALS (14 sets, daily range): BP systolic 95–131; BP diastolic 58–85
--- NOTE | 2017-08-22 02:00 | NUR ---
0200: Pt resting with eyes closed at this time. Pt remains SR/ST 90-100 bpm with SBP 100's. Pt remains 021LNC with DJ57-52h with SPO2 94%. No change in TPM settings.
--- NOTE | 2017-08-22 04:00 | NUR ---
0400: Pt assisted up to WC and transported to Xray for PA/LAT. Pt gait steady throughout. Pt returned to room and all monitors reestablished. Pt without c/o at this time. Pt remains SR/ST 90-100 with SBP 100's. No change in RESP/CV/NV status. No change in IVF/UOP.
--- NOTE | 2017-08-22 05:30 | NUR ---
0530: Pt assited up to bathroom at this time. Pt gait remains steady. Pt returned to bed without assistance.
--- NOTE | 2017-08-22 05:40 | NUR ---
0540: pt requested pain RX at this time. Rate 5/10 Incisional. Rx provided as per EMAR. Pt remains SR 90's with SBP 100's on CM. 021LNC with RR16x with SPO2 95%. No change in RESP/CV/NV status.
[2017-08-22 05:46] LABS: HEMATOCRIT 29.3 % (42.0-54.0); HEMOGLOBIN 9.8 g/dL (13.5-17.5); MCH 30.2 pg (26.0-34.0); MCHC 33.4 g/dL (31.0-37.0); MCV 90.4 fL (80.0-100.0); MEAN PLATELET VOLUME 9.8 fL (7.4-10.4); RBC 3.24 10x6/uL (4.20-6.10)
[2017-08-22 06:00] LABS: ALBUMIN 3.4 g/dL (3.4-5.0); ALKALINE PHOSPHATASE 72 U/L (46-116); ALT (SGPT) 51 U/L (10-68); CALC OSMOLALITY 276 mosm/kg (275-300); CALCIUM 8.8 mg/dL (8.5-10.1); CARBON DIOXIDE 29.2 mmol/L (21.0-32.0); CHLORIDE - SERUM 98 mmol/L (98-107); GLUCOSE 113 mg/dL (74-106); PROTEIN - SERUM 6.4 g/dL (6.4-8.2); SODIUM 136 mmol/L (136-145); UREA NITROGEN 25 mg/dL (7-18); eGFR NON AFRICAN AMERICAN 81 mL/min (90-120)
[2017-08-22 06:10] LABS: POTASSIUM - SERUM 3.2 mmol/L (3.5-5.1)
[2017-08-22] MEDS ORDERED: HEMOCYTE PLUS C1 CAP PO (08:07)
[2017-08-22] MEDS ORDERED: LOPRESSOR25 MG PO (08:07)
[2017-08-22] MEDS ORDERED: LASIX40 MG PO (08:08)
[2017-08-22] MEDS ORDERED: HYDROCODONE-APA1 TAB PO (08:09)
--- NOTE | 2017-08-22 08:25 | NUR ---
RECIEVED AWAKE AND ALERT AMBULATED EASILY TO CHAIR-TEMP PACER IN PLACE AND SENSING VVI50/10-ST ON MONITOR-NOTED K 3.2-S/S COVERAGE IN PLACE VIA L CVL PT AWAKE AND ALERT-NAPIER =4 -VERBALLY APPROPRIATE
--- NOTE | 2017-08-22 08:47 | NUR ---
Patient Name: SANDY CHUN Encounter No: [id number] : 1955 Primary Insurance: [employer] PPO Anticipated DC Date: 08-25-2017 Planned Disposition: Home DCP follow-up note: Patient and family in agreement with discharge plan. No changes to plan. Case management will follow and assist as needed. Digna Vogel
--- NOTE | 2017-08-22 09:00 | NUR ---
AMBULATED IN UNIT WITH PHYSICAL THERAPY ASSIST-TELEMETRY IN [id number]-[id number] BACK TO BED-Tod DIEZ RN AT [facility]-REMOVAL OF PACER WIRES-REMOVAL OF MEDIASTINAL CHEST DRG-INCISION WELL INTACT WITH NO DRAINAGE-REMOVAL OF R LEG DRGS -NOTED CONT SEROUS SANG DRAINAGE TO R LUPPER THIGH-J DE JESUS SITE ONLY-BETADINE OINT PLACED AND 4X4 WITH MEDIPORE TAPE-REMAINDER LEFT OPEN TO AIR-Tod DIEZ REIVIEWED RESTRICTION AND EXPECTATION WITH PT ON INCISION CARE-SHOWER ALLOWED AT HOME-NO SOAP OR TOWELING TO INCISION PAT DRY--CONTINUE INCENTIVE SPIROMETRY AT HOME MORE REGOROUSLY THEN AT HOSPITAL-[facility]
--- NOTE | 2017-08-22 10:27 | NUR ---
ASSISTED BACK TO CHAIR TOLERATED WELL AND ON ROOM AIR
[2017-08-22] MEDS ORDERED: K-DUR20 MEQ PO (11:58)
--- NOTE | 2017-08-22 12:12 | NUR ---
[facility] GIV[facility] TO PTGANESH
--- NOTE | 2017-08-22 12:54 | NUR ---
AMBULATED WITH PHYSICAL THERAPY-TOLERATED WELL ON ROOM AIR- 103
--- NOTE | 2017-08-22 15:37 | NUR ---
DISCHARGE WITH - AND PT SPOKE WITH Tod DIEZ RN FOR DISCHARGE DIRECTIONS-QUESTIONS ANSWERED AND ADDRESSED TELEPHONE NUMBER PROVIDED FOR ADDITIONAL QUESTIONS AND CONCERNS--
--- NOTE | 2017-08-29 13:09 | TEE ---
PATIENT:SANDY CHUN MEDICAL RECORD: [id number] LOCATION:[place] [address] AGE OF PATIENT: 61 ADMISSION DATE: 08/15/17 SEX: M REFERRING PHYSICIAN: INTERPRETING PHYSICIAN: ADRIANO TRENT MD TRANSESOPHAGEAL ECHOCARDIOGRAM KENIA CHARGE Y INDICATIONS: CABG PREMEDICATIONS: PATIENT'S RESPONSE PROCEDURE DOPPLER MEASUREMENTS: LVIT LA PA RA LVOT RVOT Asc. Ao AV Gradient Peak AV Mean AV Area MV Gradient Peak MV Mean MV Area INTERPRETATION: LVd: 5.2 cm LVs: 3.5 cm Doppler: 2-D: COLOR FLOW DOPPLER NORMAL SALINE STUDY: MISCELLANOUS: DIAGNOSIS: PLAN: Drill Press Operator For Metal:3 Dr. Lee Side Hemmer: Zane BROWNE COMMENTS: DATE OF SERVICE: 08/18/2017 PROCEDURE: Transesophageal echo evaluation of valvular structures during bypass surgery. FINDINGS: 1. Left ventricular chamber size is within normal limits. Left ventricular systolic function is normal. Overall ejection fraction estimated at 50%. 2. Left atrium, right atrium, and right ventricular chamber sizes are within TRANSESOPHAGEAL ECHOCARDIOGRAM REPORT [id number] APRIL CHUN normal limits. 3. Valvular structures have normal structure and motion. 4. Doppler interrogation only reveals trace mitral regurgitation. No other valvular insufficiency or stenosis. 5. No evidence of pericardial effusion or left ventricular thrombus. TRANSINT:[id number] Voice Confirmation ID: [id number] DOCUMENT ID: [id number] 08/29/2017 Edited to correct date of service, dmm. at 1309 CC: [id number] DICTATION DATE: 08/19/17 1051 COLD MILL SUPERVISOR: 08/19/17 1229 DIS IN 08/22/17 [place] [address]
--- NOTE | 2017-09-02 11:37 | HP ---
PATIENT: SANDY CHUN MEDICAL RECORD: [id number] ACCOUNT: [id number] LOCATION:[place] [address] : [birth year] ADMISSION DATE: 08/15/17 HISTORY AND PHYSICAL EXAMINATION SANDY Johnson (61yo, M) ID# [id number]. Date/Time08/15/2017 01:24HIBHG1955Service Dept.NP_[facility] ClinicProviderABISAI UGARTE MDInsuranceMed Primary: [employer] - RAILROAD CLAIMS (POS) Insurance # : [id number] Policy/Group # : [id number] Referring Provider Name : AARTI JUNIOR Employer Name : UNKNOWN Med Secondary: [employer] - RAILROAD CLAIMS (PPO) Insurance # : [id number] Policy/Group # : [id number] Referring Provider Name : AARTI JUNIOR Employer Name : UNKNOWN Med Tertiary: [employer] - RAILROAD CLAIMS (POS) Insurance # : [id number] Policy/Group # : [id number] Referring Provider Name : OLVIN BROWN Employer Name : RETIRED Prescription: ESI1 - Member is eligible. Prescription: ESI1 - Member is eligible. Chief Complaint Coronary artery disease Patient's Care Team Referring Provider (): AARTI JUNIOR: Jordan PADGETT [address] [phone], , Referring Provider (): OLVIN BROWN: [address] [place] [phone], , Calciner Operator Helper: TSACEY DAVIS MD Patient's Pharmacies [facility] [employer] [phone] (ERX): [address] [place] [place] [address], , Vitals BP:150/80 sitting R arm 08/15/2017 01:41 pm 140/80 sitting L arm 08/15/2017 01:41 pmHR:88R/R 08/15/2017 01:42 pmHt:6 ft 08/15/2017 01:40 pmWt:186 lbs 08/15/2017 01:39 pmBMI:25.2 08/15/2017 01:40 pmAllergies Reviewed Allergies NKDAMedications Reviewed Medications escitalopram 10 mg egrpwe92/07/17 filledMEDCOpantoprazole 40 mg tablet,delayed /17/17 filledMEDCOpravastatin 10 mg ivvvkz82/07/17 filledMEDCOsucralfate 1 gram amodmi58/28/16 filledMEDCOProblems Reviewed Problems Acute coronary syndrome - Onset: 08/15/2017 Intermediate syndrome - Onset: 08/15/2017 Coronary arteriosclerosis - Onset: 08/14/2017 Family History Discussed Family History Father- Heart disease HISTORY AND PHYSICAL [id number] SANDY CHUN - liver cancerMother- Congestive heart failureSocial History Discussed Social History Cardiology Family history of heart disease?: Y Smoking Status: Never smoker High Cholesterol: Y High blood pressure: Y Diabetes: N Alcohol intake: Moderate Is blood transfusion acceptable in an emergency?: Y Surgical History Reviewed Surgical History Other - PTCA/stent Other - appendectomy Other - knee surgery Past Medical History Discussed Past Medical History Angina: Y Cancer: Y - prostate Chest Pain: Y High Blood Pressure: Y Hyperlipidemia: Y Shortness of Breath: Y Documents for Discussion N/A Screening None recorded. HPI Coronary Artery Disease F/U Reported by patient. Severity: chest discomfort with household activities/yard work Associated Symptoms: chest pain with exertion ("at rest. I couldn't sleep last night."); left arm pain with exertion; dyspnea with exertion prolonged chest pain last night lasting 40 minutes ROS Patient reports chest pain on exertion, arm pain on exertion, and shortness of breath when walking but reports no shortness of breath when lying down, no palpitations, and no known heart murmur; chest pain 40 minutes last. He reports no fever, no night sweats, no significant weight gain, no sign ificant weight loss, and no exercise intolerance. He reports no dry eyes, no irritation, and no vision change. He reports no difficulty hearing and no ear pain. He reports no frequent nosebleeds and no nose/sinus problems. He reports no sore throat, no bl e eding gums, no snoring, no dry mouth, no mouth ulcers, no oral abnormalities, and no teeth problems. He reports no jugular vein distension and no swollen glands. He reports no cough, no wheezing, no shortness of breath, and no coughing up blood. He report s no abdominal pain, no vomiting, normal appetite, no diarrhea, not vomiting blood, no nausea, and no constipation. He reports no incontinence, no difficulty urinating, no hematuria, and no increased frequency. He reports no muscle aches, no muscle weaknes s , no arthralgias/joint pain, no back pain, and no swelling in the extremities. He reports no abnormal mole, no jaundice, and no rashes. He reports no loss of consciousness, no weakness, no numbness, no seizures, no dizziness, and no headaches. He reports no depression, no sleep disturbances, feeling safe in relationship, and no alcohol abuse. He reports no fatigue. He reports no swollen glands and no bruising. He reports no runny nose, no sinus pressure, no itching, no HISTORY AND PHYSICAL [id number] ADIEL,SANDY L hives, and no frequent sneezing. ROS as noted in the HPI Physical Exam Patient is a 61-year-old male. Constitutional: General Appearance well nourished and developed and healthy-appearing. Level of Distress NAD. Ambulation ambulating normally. Cardiovascular: Apical Impulse not displaced or no thrill. Heart Auscultation normal s1 and s2; no murmurs, rubs, or gallops; and RRR. Arterial Pulses no abdominal aorta bruits, femoral bruits, or popliteal bruits and 2+ bilateral, carotid 2+ bilateral, femoral 2+ bilateral, popliteal 2+ bilateral, an d dorsalis pedis 2+ bilateral. Edema no edema or varicosities. Lungs: Repiratory Effort no dyspnea. Percussion no hyperresonance or dullness or flatness. Auscultation no wheezing, rhonchi, or rales / crackles and breathing sounds normal, good air movement, and CTA except as noted. Abdomen: Bowl Sounds normal. Inspection and Palpation no tenderness, guarding, masses, or rebound tenderness and soft and non-distended. Liver non-tender and no hepatomegaly. Spleen non-tender and no splenomegaly. Hernia none palpable. Musculoskeletal System: Gait And Stance normal gait and stance. Digits and Nails normal nails and no cyanosis. Neurologic: Cranial Nerves grossly intact. Reflexes DTRs 2+ bilaterally throughout. Sensation grossly intact. Lymph Nodes: Lymph Nodes no cervical LAD, supraclavicular LAD, axillary LAD, or inguinal LAD. Eyes: Lids and Conjunctivae no discharge or pallor and non-injected. Pupils PERRLA. Cornea grossly intact. EOM EOMI. Lens clear. Sclerae non-icteric. Neck: Neck no masses, enlarged lymph nodes, or carotid bruits and supple and trachea midline. Thyroid no enlargement or nodules and non-tender. Skin: Inspection and Palpation no rash, lesions, ulcers, jaundice, or abnormal nevi. Assessment / Plan acute coronary syndrome 1. Acute coronary syndrome I24.9: Acute ischemic heart disease, unspecified Discussion Notes unstable angina Severe restenosis of his LAD and diagonal I have discussed his disease process with him and his in detail as well as the alternative methods of treatment. We discussed coronary artery bypass including the expected benefits and risk which included bleeding, infection, stroke, , and the imponderables. We also discussed hospitalization heparin drip and nitroglycerin.. He understands all of t he above and wishes to proceed with planned procedure. admitted to the hospital HISTORY AND PHYSICAL [id number] SANDY CHUN EDWARD MD at 1137 CC: [id number] DICTATION DATE: 08/15/17 1330 DOCTOR OF PODIATRY: KAYLEE 08/15/17 1602 DIS IN 08/22/17 [facility] [address] [place] [address]
--- NOTE | 2017-09-02 11:37 | OP ---
PATIENT NAME: SANDY CHUN MEDICAL RECORD: [id number] :55 LOCATION:[facility].CV05 ADMISSION DATE:08/15/17 SURGEON: JALEN LESTER MD DATE OF OPERATION: 08/18/2017 SURGEON: Jalen Lester MD ANESTHESIA: General endotracheal, Dr. Kinsey. OPERATIONS PERFORMED: Aortocoronary artery bypass utilizing left internal thoracic, left anterior descending, and reverse saphenous vein segment to the first diagonal coronary artery. PREOPERATIVE DIAGNOSES: Intermediate coronary syndrome, unstable angina. POSTOPERATIVE DIAGNOSES: Intermediate coronary syndrome, unstable angina. 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 FINDINGS AT OPERATION: The left anterior descending was a thin delicate vessel in its distal portion. The first diagonal was diffusely diseased proximally; however, it was thin and a smaller caliber distally. ESTIMATED BLOOD LOSS: Cell Saver was used. The greater saphenous vein from the right thigh and left internal thoracic artery were of excellent quality for grafting. DESCRIPTION OF PROCEDURE: After informed consent, adequate preoperative medication evaluation, the patient was brought to the operating room, placed on the table in the supine position. After induction of general endotracheal anesthesia and application of appropriate monitoring devices, the chest, neck, abdomen, and both legs were prepped and draped in a sterile field, utilizing Betadine scrub, alcohol, and Betadine solution. A Betadine-impregnated drape was also used. Saphenous vein was harvested from the right lower thigh and prepared for reverse saphenous vein grafting. The leg was closed over drains utilizing 3-0 Vicryl and skin guillermina. A median sternotomy incision was used and dissection carried down to the fascia. Hemostasis maintained with electrocautery. Sternum was divided. Innominate vein was identified and protected. Left internal thoracic was taken down and prepared for grafting. The patient was given a calculated dose of heparin and cannulated in a standard fashion utilizing 1 aortic, one two-stage cannula in the atrium and inferior vena cava. The patient was placed on cardiopulmonary bypass, cooled to 32 degrees centigrade. The patient was given cold cardioplegic solution through the aortic root after the crossclamp was applied and every 20 minutes through the root, the graft, or a combination of both. The first vessel to be grafted was the first diagonal, was grafted end-to-side utilizing a running 7-0 Prolene suture. Graft was measured back to the aorta and a proximal anastomosis fashioned utilizing running 6-0 Prolene suture. Next, left internal thoracic was brought to the hole in pericardium, sutured to the left anterior descending end-to-side utilizing a running 8-0 Prolene suture. Pedicle was attached to the epicardium with 6-0 Prolene suture. All maneuvers to remove trapped air were performed. The patient was given warm cardioplegic reperfusion and controlled reperfusion. The patient rewarmed to 37 degrees centigrade. Two atrial and 2 OPERATIVE REPORT [id number] ADIEL,SANDY L ventricular pacing wires were placed on the heart and brought out through the epigastric area. The patient was weaned cardiopulmonary bypass. After being stable off bypass, he was given calculated dose of protamine to reverse the heparin. Hemostasis was achieved. A #40 right angle and #36 chest tubes were brought in through the epigastric area and placed in mediastinum. A separate left pleural tube was connected to underwater seal and suction. Chest was again irrigated. Instrument count and sponge count were correct times 2. Chest was closed in layers utilizing #7 wire on the sternum, #2 Vicryl on the linea alba and pectoralis fascia. Subcutaneous tissue was approximated with 3-0 Vicryl and skin approximated with 3-0 subcuticular Vicryl. Sterile dressings were applied. The patient tolerated the procedure well and transferred to cardiovascular recovery in critical, but stable condition. TRANSINT:[id number] Voice Confirmation ID: [id number] DOCUMENT ID: [id number] JALEN LESTER MD at 1137 CC: [id number] DICTATION DATE: 08/18/17 1316 PEDIATRICS TEACHER: 08/18/17 1326 DIS IN 08/22/17 [place] [id number] [place] [id number]
== END 2017-08-22 15:41 | disposition home or self-care (01) | DRG 236 ==
LOC: D.CVICU 15:00
PROVIDERS: ADMIT Internal Medicine Cardiovascular Disease
PROC: 021009W Bypass Coronary Artery, One Artery from Aorta with Autologous Venous Tissue, Open Approach (ICD-10-PCS; 2017-08-18)
PROC: 06BP0ZZ Excision of Right Saphenous Vein, Open Approach (ICD-10-PCS; 2017-08-18)
PROC: 5A1221Z Performance of Cardiac Output, Continuous (ICD-10-PCS; 2017-08-18)
PROC: 02100AC Bypass Coronary Artery, One Artery from Thoracic Artery with Autologous Arterial Tissue, Open Approach (ICD-10-PCS; principal; 2017-08-18 07:30)
DX: I25.110 Atherosclerotic heart disease of native coronary artery with unstable angina pectoris (principal); I24.9 Acute ischemic heart disease, unspecified; D62 Acute posthemorrhagic anemia; I10 Essential (primary) hypertension; E78.5 Hyperlipidemia, unspecified; K21.9 Gastro-esophageal reflux disease without esophagitis; G47.00 Insomnia, unspecified; R51 Headache; K59.00 Constipation, unspecified; F41.8 Other specified anxiety disorders

== ENCOUNTER → 2017-09-11 11:04 | Outpatient (CLI) | payer OTHER ==
[2017-08-18 09:58] VITALS: BMI 25.3
[~2017-09-11 11:04] MED LIST changes: +HEMOCYTE PLUS C1 CAP PO; +HYDROCODONE-APA1 TAB PO; +K-DUR20 MEQ PO; +LASIX40 MG PO; +LOPRESSOR25 MG PO; +PRAVASTATIN SOD10 MG PO
[2017-09-11 11:24] LABS: HEMATOCRIT 35.5 % (42.0-54.0); HEMOGLOBIN 11.5 g/dL (13.5-17.5); MCH 30.2 pg (26.0-34.0); MCHC 32.4 g/dL (31.0-37.0); MCV 93.2 fL (80.0-100.0); MEAN PLATELET VOLUME 9.6 fL (7.4-10.4); RBC 3.81 10x6/uL (4.20-6.10); RDW 13.4 % (11.5-14.5)
[2017-09-11 11:33] LABS: CALC OSMOLALITY 291 mosm/kg (275-300); CALCIUM 9.1 mg/dL (8.5-10.1); CARBON DIOXIDE 27.7 mmol/L (21.0-32.0); CHLORIDE - SERUM 107 mmol/L (98-107); GLUCOSE 92 mg/dL (74-106); POTASSIUM - SERUM 4.4 mmol/L (3.5-5.1); SODIUM 146 mmol/L (136-145); UREA NITROGEN 15 mg/dL (7-18); eGFR NON AFRICAN AMERICAN 81 mL/min (90-120)
== END | disposition home or self-care (01) ==
LOC: D.LAB 08:30 → D.RAD 09:00 → D.LAB 11:04
PROVIDERS: Internal Medicine Cardiovascular Disease
DX: Z95.1 Presence of aortocoronary bypass graft (principal); J91.8 Pleural effusion in other conditions classified elsewhere; D64.9 Anemia, unspecified

== ENCOUNTER → 2019-07-14 08:39 | Outpatient (CLI) | payer OTHER ==
[2017-08-18 09:58] VITALS: BMI 25.3
[~2019-07-14 08:39] MED LIST changes: +CRESTOR10 MG PO; +NITROQUICK0.4 MG SL; +RANITIDINE HCL150 M1 PO
== END | disposition home or self-care (01) ==
LOC: D.US 08:39
PROVIDERS: ATTEND Internal Medicine Interventional Cardiology
DX: R09.89 Other specified symptoms and signs involving the circulatory and respiratory systems (principal)

== ENCOUNTER → 2019-07-15 09:51 | Outpatient (CLI) | payer OTHER ==
[2017-08-18 09:58] VITALS: BMI 25.3
--- NOTE | 2019-07-20 11:09 | ST ---
PATIENT:SANDY CHUN MEDICAL RECORD: [id number] SEX: M LOCATION:[facility] ORDER #: ADMISSION DATE: 07/15/19 AGE OF PATIENT: 63 REFERRING PHYSICIAN: INTERPRETING PHYSICIAN: ADRIANO TRENT MD DATE OF SERVICE: 07/15/2019 INDICATION: Angina, coronary artery disease, status post previous bypass surgery, hypertension and hyperlipidemia. He was exercised on standard Enoch protocol for 5 minutes 25 seconds developing angina and shortness of breath, but achieving greater than 85% max target heart rate response with 32 mCi of sestamibi injected at peak stress, 10 mCi was used previously for rest images. FINDINGS: Gated SPECT reveals a preserved ejection fraction at 65% with good wall motion and thickening and brightening throughout SPECT imaging Cardiolite was used as myocardial perfusion agent. There is reversibility anteriorly as well as inferiorly. This includes basal, mid, apical inferior, as well as basal, mid, apical anterior segments, reversibility is moderate. The amount of myocardial involved is a very large. OVERALL IMPRESSION: This is a high risk abnormal nuclear stress test, large amount of myocardium involved with reversible ischemia anteriorly as well as inferiorly suggesting multivessel coronary artery disease. TRANSINT:[id number] Voice Confirmation ID: [id number] DOCUMENT ID: [id number] ADRIANO TRENT MD at 1109 CC: AARTI JUNIOR [id number] DICTATION DATE: 07/16/19 1634 REGIONAL ACCOUNT MANAGER: 07/16/19 2206 DEP CLI 07/15/19 [place] [id number]
== END | disposition home or self-care (01) ==
LOC: D.HCCARDIO 09:51
PROVIDERS: ATTEND Internal Medicine Interventional Cardiology
DX: R09.89 Other specified symptoms and signs involving the circulatory and respiratory systems (principal)